=== PATIENT | female | born 1935 | race Caucasian/White ===

== ENCOUNTER 2017-09-18 23:39 | Inpatient (IN) | payer MEDICARE, MEDICAID ==
[~2017-09-18] VITALS: Ht 157.5 cm; Wt 74.0 kg
[~2017-09-18 23:39] MED LIST: ALBUTEROL2.5 MG/3 M IN; AMOXICILLIN500 MG PO; ASPIRIN LOW DOS81 MG PO; ATROVENT I0.5 MG/VIA IN; BENZONATATE200 MG OR; BONIVA150 MG OR; BP MED; CIPRO500 MG PO; CIPROFLOXACN500 MG OR; COMBIVENT IN; COMBIVENT RESPIMAT IN; CORTISPORIN OTI10 ML AD; DARVOCET N-100100 - OR; DITROPAN PO; DITROPAN XL10 MG PO; EC ASPIRIN325 M1 OR; EQ ASA CHLD81 MG PO; FISH OIL1000 M1 PO; FLEXERIL5 M1 PO; FUROSEMIDE20 MG PO; IPRATROPIUM/; IPRATROPIUM/ INH; LASIX 20 MG TAB20 MG PO; LISINOPRIL10 MG PO; MELOXICAM15 MG PO; METAXALONE800 M1 PO; METAXALONE800 MG OR; METOPROL TAR25 MG PO; MULTIVITAMIN OR; NEXIUM40 M1 OR; NEXIUM40 M1 PO; NEXIUM40 MG PO; NORVASC PO; NORVASC5 MG PO; NYSTATIN100000 M1 MT; OXYBUTYNIN5 M1 OR; OXYBUTYNIN5 M1 PO; PREDNISONE10 MG PO; PREVACID30 M2 OR; PROAIR HFA IN; PROVENTIL0.083 % IN; REGLAN10 MG OR; REQUIP5 MG OR; ROPINIROLE1 MG OR; ROPINIROLE1 MG PO; TIZANIDINE HCL2 M1 PO; TIZANIDINE HCL4 MG PO; TRAMADOL HCL50 MG OR; TRAMADOL HCL50 MG PO; TYLOPHEN500 M1 PO; VENTOLIN HFA IN; VITAMIN D2000 UNIT OR; ZITHROMAX500 MG PO; ZOSTAVAX IM; [UNRECOGNIZED DRUG - OTHER]
--- NOTE | 2017-09-18 23:50 | NUR ---
PT. TO ROOM 8 VIA W/C WITH C/O WEAKNESS AND SOB. PT. STATES SHE WAS WATCHING TV AND FELT WEAK.
--- NOTE | 2017-09-18 23:51 | NUR ---
PT. BILATERAL LUNG RIVAS ARE DEMINISHED. PT. O2 SAT ON RA 77%. PT. PLACED ON O2 NOW SATTING 95%. PT. STATES SHE WEARS O2 AT HOME.
[2017-09-19] VITALS (22 sets, daily range): BP systolic 91–151; BP diastolic 42–69
--- NOTE | 2017-09-19 00:01 | NUR ---
EKG COMPLETED.ST [address] Bella
--- NOTE | 2017-09-19 00:02 | NUR ---
PT. TO ROOM 8 WITH C/O FEVER 100.2 WEAKNESS AND SOB. BILATERAL LUNG RIVAS ARE DEMINISHED. O2 SAT ON RA 77 %. SKIN WARM AND PALE. RESP. 24 AND SHALLOW. BILATERAL LUNG RIVAS ARE DEMINISHED. PT. PLACED ON 2 LIT/O2 O2 SAT 98 % AT THIS TIME.
--- NOTE | 2017-09-19 00:08 | NUR ---
PT STRAIGHT BACK TO ROOM 8 AND TRIAGED
--- NOTE | 2017-09-19 00:35 | NUR ---
BP 77/59 MD AWARE.
--- NOTE | 2017-09-19 00:43 | NUR ---
PT. PLACED ON BIPAP PER MD ORDER.
--- NOTE | 2017-09-19 00:49 | NUR ---
ivf started as per md order.
[2017-09-19 01:12] LABS: HEMATOCRIT 34.6 % (37.0-47.0); HEMOGLOBIN 11.4 g/dl (12.0-16.0); IMMATURE GRANULOCYTES 1.1 % (0.0-1.0); MEAN CELL VOLUME 88.3 fL CALC (80.0-100.0); MEAN CORPUSCULAR HGB 29.1 pG CALC (26.0-32.0); MEAN CORPUSCULAR HGB CONC 32.9 g/L CALC (32.0-36.0); NEUT# 21.63 thou/uL (2.00-7.15); RED BLOOD COUNT 3.92 mill/uL (4.20-5.60); RED CELL DISTRI WIDTH 16.4 % (11.5-15.5)
[2017-09-19 01:24] LABS: BILIRUBIN, TOTAL 0.8 mg/dL (0.0-1.4); CREATININE 1.4 mg/dL (0.5-1.0); INTERNATIONAL NORMALIZED RATIO 0.9 RATIO (0.7-1.3); POTASSIUM 4.9 mmol/l (3.5-5.1); PROTHROMBIN TIME 10.5 SECONDS (9.0-12.5); TOTAL PROTEIN 6.7 g/dL (6.3-8.2)
[2017-09-19] MEDS ORDERED: BUMETANIDE1 MG PO (01:43)
[2017-09-19] MEDS ORDERED: LIPITOR10 M1 PO (01:43)
[2017-09-19] MEDS ORDERED: TEMAZEPAM15 MG PO (01:44)
[2017-09-19] MEDS ORDERED: SERTRALINE HCL25 MG PO (01:45)
[2017-09-19] MEDS ORDERED: POTASSIUM CHLO10 MEQ PO (01:45)
--- NOTE | 2017-09-19 01:45 | NUR ---
resting on stretcher, awake alert and oriented.
[2017-09-19 02:09] LABS: INFLUENZA A NONE DETECTED (NONE DETECT); INFLUENZA B NONE DETECTED (NONE DETECT)
--- NOTE | 2017-09-19 02:45 | NUR ---
koenig cath inserted, pt. tolerated well.
[2017-09-19 03:06] LABS: URINE BILIRUBIN - DIPSTICK NEGATIVE (NEGATIVE); URINE BLOOD DIPSTICK NEGATIVE (NEGATIVE); URINE COLOR YELLOW; URINE GLUCOSE - DIPSTICK NEGATIVE (NEGATIVE); URINE KETONE NEGATIVE (NEGATIVE); URINE LEUK ESTERASE NEGATIVE (NEGATIVE); URINE NITRITE - DIPSTICK NEGATIVE (Negative); URINE PROTEIN - DIPSTICK NEGATIVE (NEG-TRACE); URINE UROBILINOGEN - DIPSTICK 0.2 E.U./dL (0.2)
[2017-09-19 03:08] LABS: URINE CLARITY CLEAR
--- NOTE | 2017-09-19 03:15 | NUR ---
Admission Note Report Given to: MARCELA AKBAR Transported by: Wheelchair X Stretcher Transported with: X Nurse Transporter X Patent IV X O2 X Data Integrity Specialist
--- NOTE | 2017-09-19 03:36 | NUR ---
iv abt. started as per md order.
--- NOTE | 2017-09-19 03:45 | NUR ---
pt. taken to icu via stretcher bed 1. with resp. therapist. no c/o.
--- NOTE | 2017-09-19 03:50 | NUR ---
PT. ARRIVES FROM ER VIA STRETCHER WITH BIPAP IN PLACE. PT. MOVED FROM ER STRETCHER TO ICU BED BY 4 PERSON MAX ASSIST. UPON TRANSFER TO ICU BED, PT. PLACED ON 2L NC. SPO2 IS 90-93% ON 2L O2. PT. ORIENTED TO ROOM AND SITUATION. PT. IS AWAKE, ALERT, ORIENTED X 3. C/O 10/10 LOWER BACK PAIN, STATES IT IS HER POSITIONING LAYING FLAT. PT. DOES NOT APPEAR TO BE IN 10-10 PAIN. PT. STATES HER WORK OF BREATHING HAS IMPROVED. PROVIDED WITH WATER PER HER REQUEST. REPOSITIONED FOR COMFORT. CALL LIGHT PLACED WITHIN REACH. COARSE LUNG SOUNDS NOTED THROUGHOUT.
--- NOTE | 2017-09-19 04:20 | NUR ---
FAMILY AT BEDSIDE AT THIS TIME. IV FLUIDS CONTINUE TO INFUSE. NEW IV PLACED AT THIS TIME TO LT. F/A DUE TO POSITIONAL IV IN RT. AC. ABX INFUSING WITHOUT SX OF INFILTRATION OR EXTRAVASATION. PT. REMAINS STABLE ON 2L VIA NC. STATES MUCH IMPROVED WORK OF BREATHING. STATES TO FAMILY SHE IS READY TO GO HOME.
--- NOTE | 2017-09-19 05:30 | NUR ---
RT AT BEDSIDE AT THIS TIME. NEB TREATMENT IN PROGRESS. PT. CONTINUES TO REPORT IMPROVEMENT IN SX OF SOB.
--- NOTE | 2017-09-19 05:37 | NUR ---
IV VANCOMYCIN INFUSING AT THIS TIME WITHOUT REACTION NOTED.
[2017-09-19 05:49] LABS: HEMATOCRIT 29.7 % (37.0-47.0); MEAN CELL VOLUME 88.7 fL CALC (80.0-100.0); MEAN CORPUSCULAR HGB 29.9 pG CALC (26.0-32.0); MEAN CORPUSCULAR HGB CONC 33.7 g/L CALC (32.0-36.0); NEUT# 18.2 thou/uL (2.00-7.15); RED BLOOD COUNT 3.35 mill/uL (4.20-5.60); RED CELL DISTRI WIDTH 16.7 % (11.5-15.5)
[2017-09-19 06:08] LABS: CREATININE 1.4 mg/dL (0.5-1.0); MAGNESIUM 1.5 mg/dL (1.6-2.3); POTASSIUM 4.2 mmol/l (3.5-5.1)
--- NOTE | 2017-09-19 07:10 | NUR ---
pt awake in bed eating outside food provided by family member; no distress noted; assessment completed at this time; pt alert and oriented; denies pain at current; no n/v noted; grunting resp noted; pt denies sob/resp distress; resp unlabored; lungs coarse throughout; skin color wnl; o2 per nc; spo2 96%; prod cough of yellow/packer thick sputum; hr reg; strong pulses; edema noted to ble; bilat edgardo hose intact; sr on monitor; abd soft with bs present; no bm noted per real estate underwriter; koenig to gravity draining clear yellow urine; cath rose intact; #20 in rac saline locked; #22 in lw patent with ivf infusing as per orders; small scab noted to left great lat toe; plan of care/meds explained; call light within reach; will continue to monitor
--- NOTE | 2017-09-19 08:12 | NUR ---
awake in bed; family x1 remain at bedside; no distress noted; pt offers no complaints; o2 per nc; sr on monitor; call light within reach; will continue to monitor
--- NOTE | 2017-09-19 09:05 | NUR ---
Dr Suarez at bedside to discuss plan of care
--- NOTE | 2017-09-19 10:21 | NUR ---
Drug Selected: Vancomycin Age: 81 years Weight: 74 kg Height: 62 in Gender: Female SCR: 1.4 mg/dl Give Vancomycin 1000 mg q24 hrs NEXT TROUGH WILL BE 09/22/17 @ 3660
--- NOTE | 2017-09-19 10:21 | NUR ---
1021- pt transported to CT via stretcher with portable o2 in stable condition; this tech writer and student nurse remains with pt 1053- pt returned to unit via stretcher with portable o2 in stable condition; partial bath given; complete linen change; monitoring attahcment explained and reconnected; sr on monitor; o2 per nc; koenig to gravity; iv patent with fluids infusing without complication; call light within reach; will continue to monitor
[2017-09-19] MEDS ORDERED: BUDESONID2 (10:48)
[2017-09-19] MEDS ORDERED: ANORO ELLIPTA 61 AER PO (10:49)
[2017-09-19] MEDS ORDERED: COMBIVENT RESPIMAT PO (10:50)
[2017-09-19] MEDS ORDERED: DUONEB (10:51)
[2017-09-19] MEDS ORDERED: DOXEPIN HCL10 MG PO (10:51)
[2017-09-19] MEDS ORDERED: ROPINIROLE HCL0.5 MG PO (10:52)
--- NOTE | 2017-09-19 11:15 | NUR ---
family back at bedside; family did not bring in meds as requested per Dr Suarez for verification; will continue to monitor
--- NOTE | 2017-09-19 12:08 | NUR ---
awake in bed; no distress noted; pt offers no complaints; resp even and unlabored; iv patent; no redness or edema noted at site; sr on monitor; o2 per nc; visitors x2 at bedside; call light within reach; will continue to monitor
[2017-09-19] MEDS ORDERED: LASIX 20 MG TAB20 MG PO (13:13)
--- NOTE | 2017-09-19 14:20 | NUR ---
pt resting with eyes closed; no distress noted; resp even and unlabored; iv patent; no redness or edema noted at site; sr on monitor; koenig to gravity; call light within reach; will continue to monitor
--- NOTE | 2017-09-19 15:59 | NUR ---
resting with eyes closed; sr on monitor; no distress noted; easily aroused; o2 per nc; koenig to gravity; call light within reach; will continue to monitor
--- NOTE | 2017-09-19 16:30 | NUR ---
awake; assisted to recliner as per request; 2 person minimal assist required; sob on exertion noted; call light within reach; visitor at bedside; will continue to monitor
--- NOTE | 2017-09-19 18:00 | NUR ---
assist to bsc for bm; no bm noted; back to bed per pt request; sob on exertion; o2 per nc at 2L; st on moitor; koenig to gravity; sister at bedside; bed in lowest position; call light at bedside
--- NOTE | 2017-09-19 18:05 | NUR ---
Dr Ugalde at bedside
--- NOTE | 2017-09-19 19:00 | NUR ---
PT VISITING WITH FAMILY IN ROOM. PT IS ALERT AND ORIENTED X3. PERRLA. RESP ARE EVEN AND UNLABORED. WHEEZING NOTED IN BILATERAL LUNGS. PT REPORTS A PRODUCTIVE COUGH. HR REGULAR. PULSES PALPABLE THROUGHOUT. NO EDEMA NOTED. BS ACTIVE. ABEL DRAINING CLEAR YELLOW URINE. #22 LFA WITH NS @75CC/HR. NO REDNESS OR EDEMA NOTED. #20 RAC D/C. CATH TIP INTACT. PT TOLERATED WELL. WILL CONTINUE TO MONITOR
--- NOTE | 2017-09-19 21:15 | NUR ---
HS MEDICATIONS GIVEN. PT STATES THAT SHE IS HAVING SOME BACK PAIN. MEDICATED FOR PAIN WITH TRAMADOL. WILL CONTINUE TO MONITOR
--- NOTE | 2017-09-19 22:08 | NUR ---
PT RESTING IN BED WITH EYES CLOSED. RESP ARE EVEN AND UNLABORED. WILL CONTINUE TO [place]
--- NOTE | 2017-09-19 23:55 | NUR ---
PT RESTING IN BED WITH EYES CLOSED. PT AROUSES EASILY TO VERBAL STIMULI. RESP ARE EVEN AND UNLABORED. NO DISTRESS NOTED. WILL CONTINUE TO MONITOR
[2017-09-20] VITALS (18 sets, daily range): BP systolic 94–147; BP diastolic 56–93
--- NOTE | 2017-09-20 01:40 | NUR ---
PT NOW AFIB ON MONITOR. NOTED PT MOVING AROUND IN BED. WILL CONTINUE TO MONITOR
--- NOTE | 2017-09-20 02:15 | NUR ---
PT REMAINS IN AFIB ON MONITOR 90-140S. BP 90/60 MANUAL. AUTOMATIC 87/56. DR PACHECO NOTIFIED. PT DENIES BEING ON BLOOD THINNERS AND MEDICAL HISTORY OF AFIB. WILL CONTINUE TO MONITOR
--- NOTE | 2017-09-20 04:00 | NUR ---
PT RESTING IN BED AWAKE. RESP ARE EVEN AND UNLABORED. NO DISTRESS NOTED. PT VOICES NO COMPLAINTS AT THIS TIME. WILL CONTINUE TO MONITOR
[2017-09-20 05:26] LABS: HEMOGLOBIN 9.3 g/dl (12.0-16.0); MEAN CELL VOLUME 88.3 fL CALC (80.0-100.0); MEAN CORPUSCULAR HGB 29.3 pG CALC (26.0-32.0); MEAN CORPUSCULAR HGB CONC 33.2 g/L CALC (32.0-36.0); RED BLOOD COUNT 3.17 mill/uL (4.20-5.60); RED CELL DISTRI WIDTH 15.9 % (11.5-15.5)
[2017-09-20 06:00] LABS: CREATININE 1.1 mg/dL (0.5-1.0); POTASSIUM 3.8 mmol/l (3.5-5.1)
--- NOTE | 2017-09-20 06:04 | NUR ---
PT RESTING IN BED AWAKE. RESP ARE EVEN AND UNLABORED. NO DISTRESS NOTED. WILL CONTINUE TO MONITOR
--- NOTE | 2017-09-20 07:19 | NUR ---
INTRODUCED SELF TO PT. PT REQUEST TO BE UP IN CHAIR AT BEDSIDE. CRACKLES THROUGH LUNG BASE, EVEN BUT LABORED BREATHING. PT TALKATIVE WITH STAFF. BED LINENS CHANGED. NO VISITORS AT BEDSIDE.
--- NOTE | 2017-09-20 07:50 | NUR ---
PT UP IN CHAIR EATING BREAKFAST. NO VISITORS AT THIS TIME. PT FREQUENTLY ON CALLBELL.
--- NOTE | 2017-09-20 08:19 | NUR ---
DR SHELDON @ BEDSIDE ASSESSING PT, REVIEWING POC WITH PT.
--- NOTE | 2017-09-20 09:00 | NUR ---
PT RETURNED TO BED. SON-IN-LAW @ BEDSIDE. PT INITIALLY BREATHING EVEN & UNLABORED BUT GETS LABORED THE LONGER STAFF IS IN ROOM. 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
--- NOTE | 2017-09-20 10:05 | NUR ---
PT OVERHEARD ON CELLPHONE SPEAKING EVEN & UNLABORED. PT FREQUENTLY QUALITY LIAISON MATTHEW.
--- NOTE | 2017-09-20 11:54 | NUR ---
PT SITTING UP IN BED EATING LUNCH. NO S/S OF DISTRESS. WILL CONTINUE TO MONITOR.
--- NOTE | 2017-09-20 13:00 | NUR ---
PT SLEEPING IN BED. NO S/S OF DISTRESS. WILL CONTINUE TO MONITOR.
--- NOTE | 2017-09-20 13:58 | NUR ---
PT UP TO CHAIR, PER PTS REQUEST.
--- NOTE | 2017-09-20 14:49 | NUR ---
GUEST @ BEDSIDE. PT TALKING, LAUGHING, JOKING. NO S/S OF DISTRESS. PT STILL UP IN CHAIR.
--- NOTE | 2017-09-20 15:04 | NUR ---
PT GIVEN A BATH AND CHANGED TO NEW GOWN.
--- NOTE | 2017-09-20 16:07 | NUR ---
ASSIST PT BACK INTO BED. RT @ BEDSIDE FOR NEB TREATMENT. SON @ BEDSIDE.
--- NOTE | 2017-09-20 17:05 | NUR ---
PT SITTING UP IN BED, EATING DINNER. NO S/S OF DISTRESS AT THIS TIME. SON-IN-LAW BROUGHT SALAD DRESSING AND A DRINK IN A JAR- LABELED & PLACED IN FRIDGE.
--- NOTE | 2017-09-20 17:57 | NUR ---
DIETARY @ BEDSIDE TO ASSESS DIET FOR TOMORROW.
--- NOTE | 2017-09-20 18:03 | NUR ---
REQUESTED MEDS FROM [facility] SINCE PHARM IS CLOSED.
--- NOTE | 2017-09-20 19:00 | NUR ---
PT RESTING IN BED AWAKE. PT IS ALERT AND ORIENTED X3. PERRLA. RESP ARE LABORED. LUNGS HAVE CRACKLES BILATERALLY. PT ON O2 2L NC. HR IRREGULAR. AFIB ON MONITOR. PULSES PALPABLE THROUGHOUT. 1+ EDEMA TO BILATERAL EXTREMITIES. BS ACTIVE. ABEL DRAINING CLEAR YELLOW URINE. NOTIFIED DR PACHECO THAT PT IS UP ON FLUIDS. #22 LFA WITH NS @75CC/HR. NO REDNESS OR EDEMA NOTED. WILL CONTINUE TO MONITOR
--- NOTE | 2017-09-20 19:20 | NUR ---
#22 STARTED IN RFA X1 ATTEMPT. PT TOLERATED WELL.
--- NOTE | 2017-09-20 19:30 | NUR ---
AMIODARONE BOLUS STARTED BP 106/80 HR 112
--- NOTE | 2017-09-20 19:35 | NUR ---
BP 147/90 HR 132
--- NOTE | 2017-09-20 19:40 | NUR ---
BP 130/72 HR 105
--- NOTE | 2017-09-20 19:42 | NUR ---
AMIODARONE 450MG/250ML STARTED AT 1MG PER MINUTE WILL DECREASE TO 0.5MG/MIN AT 0140
--- NOTE | 2017-09-20 19:45 | NUR ---
AMIODARONE DRIP INFUSING. BP-112/69 HR 111. WILL CONTINUE TO MONITOR
--- NOTE | 2017-09-20 20:39 | NUR ---
PT REMAINS AFIB ON MONITOR AT A RATE OF 109. AMIODARONE DRIP INFUSING AT 1MG/MIN.
--- NOTE | 2017-09-20 21:28 | NUR ---
PT REMAINS AFIB ON MONITOR AT A RATE OF 122
--- NOTE | 2017-09-20 22:14 | NUR ---
PT RESTING IN BED WITH EYES CLOSED. RESP ARE EVEN AND UNLABORED. NO DISTRESS NOTED. PT CONTINUES TO BE IN AFIB ON MONITOR
[2017-09-21] VITALS (28 sets, daily range): BP systolic 108–202; BP diastolic 61–99
--- NOTE | 2017-09-21 | NUR ---
PT REQUESTED A NEB TREATMENT STATING THAT SHE FEELS SHORT OF BREATH. RT NOTIFIED. NEB TREATMENT PROVIDED.
--- NOTE | 2017-09-21 00:25 | NUR ---
PT O2 SAT 79%. PT WITH LABORED BREATHING. PT PLACED ON BIPAP FIO2 28% 06/04.
--- NOTE | 2017-09-21 00:35 | NUR ---
NOTIFIED DR PACHECO OF PT BEING PLACED BACK ON BIPAP. PT CONTINUES TO BE AFIB ON MONITOR AT A RATE OF 111. CRACKLES BILATERALLY IN LUNGS. NOTIFIED DR PACHECO.
--- NOTE | 2017-09-21 00:50 | NUR ---
RECEIVED ORDERS FROM DR PACHECO TO GIVE LASIX 40MG IV. ORDERS [facility]XED TO [facility]
--- NOTE | 2017-09-21 01:37 | NUR ---
TITRATED DOWN AMIODARONE TO 0.5MG/MIN. BPS Q5MIN X4. THEN EVERY HOURS
--- NOTE | 2017-09-21 02:00 | NUR ---
PT RESTING IN BED WITH EYES CLOSED. RESP ARE EVEN AND UNLABORED ON BIPAP. NO DISTRESS NOTED. PT REMAINS AFIB ON MONITOR. WILL CONTINUE TO MONITOR
--- NOTE | 2017-09-21 04:00 | NUR ---
PT RESTING IN BED WITH EYES CLOSED. RESP ARE EVEN AND UNLABORED. NO DISTRESS NOTED. BIPAP IN PLACE. WILL CONTINUE TO MONITOR.
--- NOTE | 2017-09-21 05:03 | NUR ---
SECOND BAG OF AMIODARONE DRIP STARTED. PT REMAINS IN AFIB ON MONITOR AT A RATE OF 100. BIPAP CONTINUES TO BE IN PLACE. PO FLUIDS PROVIDED FOR PT. WILL CONTINUE TO MONITOR
[2017-09-21 05:13] LABS: HEMATOCRIT 28.3 % (37.0-47.0); HEMOGLOBIN 9.3 g/dl (12.0-16.0); IMMATURE GRANULOCYTES 0.7 % (0.0-1.0); MEAN CELL VOLUME 90.1 fL CALC (80.0-100.0); MEAN CORPUSCULAR HGB 29.6 pG CALC (26.0-32.0); MEAN CORPUSCULAR HGB CONC 32.9 g/L CALC (32.0-36.0); NEUT# 14.63 thou/uL (2.00-7.15); RED BLOOD COUNT 3.14 mill/uL (4.20-5.60); RED CELL DISTRI WIDTH 16.3 % (11.5-15.5)
[2017-09-21 05:36] LABS: CREATININE 1.2 mg/dL (0.5-1.0); POTASSIUM 4.4 mmol/l (3.5-5.1)
--- NOTE | 2017-09-21 06:11 | NUR ---
PT RESTING INBED WITH EYES CLOSED. BIPAP IN PLACE. PT AROUSES EASILY TO VERBAL STIMULI. RESP ARE EVEN AND UNLABORED. NO DISTRRESS NOTED. WILL CONTINUE TO MONTIOR
--- NOTE | 2017-09-21 06:25 | NUR ---
POST IV LASIX PT HAD 1400CC OF CLEAR YELLOW URINE IN ABEL.
--- NOTE | 2017-09-21 06:30 | NUR ---
PT REQUESTED THAT BIPAP BE REMOVED. INSTRUCTED PT THAT WE COULD DO A TRIAL AND REMOVE BIPAP. [id number] PT ON TAKING NICE SLOW DEEP BREATHS IN THROUGH THE NOSE AND OUT THROUGHT THE MOUTH. INFORMED PT THAT IF SHE BECOMES TACHYPNEIC OR IF O2 SATURATION DROPS SHE WILL HAVE TO BE PLACED BACK ON BIPAP. ENCOURAGED PT TO MONITOR AND DECREASE PO FLUID INTAKE TO AVOID FLUID OVERLOAD. PT VERBALIZED UNDERSTANDING.
--- NOTE | 2017-09-21 07:25 | NUR ---
PT ALERT AND ORIENTED, ASSISTED TO SITTING UP ON EDGE OF BED FOR AM MEAL, AND FOR COMFORT PER PT REQUEST, COMPLAINS OF GENERAL BACK ACHE RELATED TO LAYING IN BED, AM ASSESSMENT COMPLETED PT HAS CRACKLES THRU OUT WITH LABORED RESPS NOTED, PT CURRENTLY HAS O2 AT 2L VIA NC WITH SATS 84-87%, ENCOURAGED TO TAKE SLOW DEEP BREATHS AND REST PRN, VS STABLE OTHERWISE, ABEL INTACT DRAINING CLEAR YELLOW URINE, WITH CATH CESURITY DEVICE INTACT ON UPPER THIGH, IV ACCESS X [address] IN BILATERAL FA WITH AMIODARONE GTT CONTINUING PER PROTOCOL AND IVF WITH ABT, TELE READING A FIB RATE IN THE 90-110 RANGE, HR FLUCUATES FREQUENTLY, CALL MATTHEW WITHIN REACH, SAFETY MEASURES REINFORCED, AND ENCOURAGED TO CALL FOR ANY NEEDED ASSISTANCE
--- NOTE | 2017-09-21 08:10 | NUR ---
PT LABORED RESPS WITH SAT IN THE 70'S, ASSISTED BACK TO LYING DOWN, REPOSITIONED FRO COMFORT, AND BI PAP PLACED BACK ON PT, SEE FLOWSHEET FOR SETTINGS, R.T. NOTIFIED.
--- NOTE | 2017-09-21 09:15 | NUR ---
PT TOLERATING BI PAP W/O INCIDENT, SAT SLOWLY IMPROVING CURRENTLY AT 90%, COMFORT MEASURES PROVIDED, CALL MATTHEW WITHIN REACH, WILL CONTINUE TO MONITOR
--- NOTE | 2017-09-21 10:00 | NUR ---
MULTIPLE VISITORS PT ENCOURAGED TO REST AND NOT TALK OVER BIPAP, COOPERATIVE AT TIMES BUT REQUIRES FREQUENT REMINDERS, IVF CONTINUE ORDERED, CALL MATTHEW WITHIN REACH.
--- NOTE | 2017-09-21 10:31 | NUR ---
PT RESTING, CONTINUES TOLERATE BI PAP, OFFERS NO NEW COMPLAINTS, STATES PAIN IMPROVED SINCE MEDICATED EARLIER, CALL MATTHEW WITHIN REACH, VISITOR AT BEDSIDE
--- NOTE | 2017-09-21 11:30 | NUR ---
PT ENCOURAGED TO KEEP BI PAP ON UNTIL LUNCH TRAYS ARE DELIVERED, WILL TRIAL REMOVE BIPAP AT THAT TIME AND MONITOR TOLERANCE.
--- NOTE | 2017-09-21 12:05 | NUR ---
BI PAP OFF, PLACED ON NC WILL MONITOR TOLERANCE, VISITORS AT BEDSIDE
--- NOTE | 2017-09-21 12:20 | NUR ---
BI PAP PLACED BACK ON PT AT HER REQUEST, FAMILY MEMBERS AT BEDSIDE, CALL MATTHEW WITHIN REACH.
--- NOTE | 2017-09-21 13:36 | NUR ---
PT RESTING IN BED, OFFERS NO NEW COMPLAINTS, VISITORS AT BEDSIDE, CONTINUES TO TOLERATE BIPAP, VS STABLE AMIODARONE GTT CONTINUES PER PROTOCOL, CALL MATTHEW WITHIN REACH.
--- NOTE | 2017-09-21 14:34 | NUR ---
BI PAP OFF FOR REST PER PT REQUEST, O2 PLACED AT 3L VIA NC, WILL MONITOR TOLERANCE, VISITORS REMAIN AT BEDSIDE.
--- NOTE | 2017-09-21 15:52 | NUR ---
pt continues to tolerate NC, talking on phone with family member, encouraged to rest as needed for dyspnea
--- NOTE | 2017-09-21 16:40 | NUR ---
pt resps slightly labored, sats maintained in the 81-84% range, BI PAP placed back on pt, will monitor tolerance.
--- NOTE | 2017-09-21 18:00 | NUR ---
SET UP ASSIST PROVIDED FOR PMA, MEAL BI PAP OFF BU1989 AND PT SPOKE WITH HER DAUGHTER VIA TELEPHONE, RESPS REMAINS LABORE DANAmerico PT ENCOURAGED TO EAT SLOWLY AND REST PRN, WILL CONTINUE TO MONITOR.
--- NOTE | 2017-09-21 18:03 | NUR ---
PT BACK ON BI PAP, VISITORS GONE AT THIS TIME, PT ENCOURAGED TO KEEP BI PAP ON THRU OUT HTE NIGHT IN ORDER TO REST, PT VERBALIZES AGREEANCE, WILL CONTINUE TO MONITOR
--- NOTE | 2017-09-21 18:09 | NUR ---
HYDRALAZINE IV GIVEN ORDERED FOR BP 190/98
--- NOTE | 2017-09-21 18:48 | NUR ---
MANUAL BP 180/80
--- NOTE | 2017-09-21 18:50 | NUR ---
REPORT FROM RAFFY CASTILLO. ASSUMED PT. CARE.
--- NOTE | 2017-09-21 19:30 | NUR ---
PATIENT RECEIVED ON BIPAP WITH 16/8, RATE 16 AND 28%. SPO2 ON THAT SETTING WAS 86% AND SHE WAS BREATHING VERY FAST ABOUT 40 BREATH A MINUTE. FIO2 INCREASED FROM 28% TO 35%. ABG DRAWN AFTER ABOUT 10 MINUTES. RESULT ON MEDITECK. PRESSURE WAS INCREASED TO 20/10, RATE OF 20 AND STILL 35%. DR PACHECO WAS CALLED TO REPORT THE RESULT. REPEAT ABG IN 4 HOURS. PATIENT LOOKS COMFORTABLE WITH NEW SETTING. WILL CONTINUE TO MONITOR THE PATIENT THROUGHTOUT THE SHIFT.
--- NOTE | 2017-09-21 20:05 | NUR ---
PT. PROVIDED WITH SIP OF TEA PER HER REQUEST. PT. HAS REQUESTED SIPS OF WTER FREQUENTLY SINCE THIS RN ARRIVAL. RT AT BEDSIDE AND NEW ABG PERFORMED AND EKG. PT. IS NOW SINUS RHYTHM. INFORMED. NEW ORDERS RECEIVED.
--- NOTE | 2017-09-21 21:30 | NUR ---
PT. MEDICATED PER PHYSICIAN ORDERS. PT. DENIES COMPLAINTS AT THIS TIME. WILL REASSESS PAIN LEVEL. LIGHTS DIMMED FOR COMFORT. REMAINS ON BIPAP AT THIS TIME. WILL CONTINUE TO CLOSELY MONITOR. CALL LIGHT REMAINS WITHIN REACH AND PT. CONTINUES TO USE IT FREQUENTLY.
--- NOTE | 2017-09-21 22:44 | NUR ---
RT. AT BEDSIDE AT THIS TIME TO ADMINISTER NEB TREATMENT. PT. REMAINS ON BIPAP AT THIS TIME. SPO2 IS STABLE AT 96%. MD MADE AWARE OF CURRENT BP. NO NEW ORDERS AT THIS TIME.
--- NOTE | 2017-09-21 23:45 | NUR ---
RT. BACK AT BEDSIDE TO PERFORM ABG. ABX INITIATED AT THIS TIME. BIPAP MASK REPOSITIONED FOR PATIENT COMFORT. PROVIDED WITH SIP OF WATER AT THIS TIME. CALL LIGHT REMAINS WITHIN REACH. WILL CONTINUE TO MONITOR.
[2017-09-22] VITALS (23 sets, daily range): BP systolic 140–186; BP diastolic 66–92
--- NOTE | 2017-09-22 01:30 | NUR ---
PT. PLACED ON BEDPAN AT THIS TIME. UNABLE TO PROVIDE STOOL. REPOSITIONED FOR COMFORT. CONTINUES TO VOICE HER DISPLEASURE FOR BIPAP. PT. ENCOURAGE TO KEEP IT IN PLACE HER ABG WAS NOT IMPROVED. CALL LIGHT PLACED BACK WITHIN REACH. PROVIDED WITH SIP OF TEA PER HER REQUEST. WILL CONTINUE TO MONITOR.
--- NOTE | 2017-09-22 02:16 | NUR ---
RT. CALLED AT THIS TIME PT. STATES SHE NEEDS THE BIPAP OFF. STATES IT IS HURTING HER NOSE. WILL ADJUST PER RT.
--- NOTE | 2017-09-22 03:36 | NUR ---
PT. C/O HEADACHE AT THIS TIME. NEW ORDERS RECEIVED, WILL MEDICATE WHEN PHARMACY PLACES ORDER THROUGH. DENIES OTHER COMPLAINTS. PT. BACK ON BIPAP AT THIS TIME. BIPAP CONTINUES WITH MILD LEAK DUE TO PT. C/O MASK BEING TOO TIGHT.
--- NOTE | 2017-09-22 04:02 | NUR ---
ATTEMPT TO MEDICATE PATIENT AT THIS TIME. PT. FOUND SLEEPING AT THIS TIME. WILL MEDICATE WHEN PATIENT AWAKE IF NEEDED FOR HEADACHE. DOOR CLOSED FOR QUIET AT THIS TIME. REMAINS STABLE ON THE BIPAP AT THIS TIME.
--- NOTE | 2017-09-22 05:50 | NUR ---
RESP THERAPY AT BEDSIDE TO REPEAT ABG. NEB TREATMENT IN PROGRESS AT THIS TIME. PT. REQUESTING CHANGE TO MASK. ENCOURAGED TO KEEP IN PLACE UNTIL NEB TREATMENT COMPLETE. MEDICATED WITH TYLENOL FOR COMPLAINT OF HEADACHE. MEDICATED NOW THAT PATIENT IS AWAKE.
--- NOTE | 2017-09-22 06:11 | NUR ---
MASK REPOSITIONED AT THIS TIME. IV ANTIBIOTICS INFUSING WITHOUT PROBLEMS AT THIS TIME. WILL CONTINUE TO MONITOR.
[2017-09-22 06:43] LABS: HEMATOCRIT 30.7 % (37.0-47.0); MEAN CORPUSCULAR HGB CONC 32.6 g/L CALC (32.0-36.0); RED BLOOD COUNT 3.45 mill/uL (4.20-5.60); RED CELL DISTRI WIDTH 16.3 % (11.5-15.5)
[2017-09-22 06:57] LABS: ALBUMIN 2.8 g/dL (3.2-5.0); ALKALINE PHOSPHATASE 81 u/l (38-126); ANION GAP 13 (6-22 (CALC)); BILIRUBIN, TOTAL 0.3 mg/dL (0.0-1.4); BUN 20 mg/dL (8-23); BUN/CREATININE RATIO 19 (12-20 (CALC)); CARBON DIOXIDE 34 mmol/l (22-30); CHLORIDE 93 mmol/l (95-108); GFR 53 ML/MIN (>=60 (CALC)); GFR FOR AFR.AMER. > 60 ML/MIN (>=60 (CALC)); POTASSIUM 3.8 mmol/l (3.5-5.1); SGOT/AST 36 u/l (9-36); SGPT/ALT 53 u/l (11-66); SODIUM 137 mmol/l (137-146); TOTAL PROTEIN 5.4 g/dL (6.3-8.2)
--- NOTE | 2017-09-22 07:25 | NUR ---
PT ALERT AND ORIENTED, RESTING IN BED WITH BI PAP IN PLACE SEE FLOW SHEET FOR SETTINGS, REQUESTING IT TO BE OFF, EDUCATED PT REGARDING IMPORTANCE OF REMAINING ON BI PAP AT THIS TIME R/T RESP STATUS, PT VERBALIZES UNDERSTANDING, COMPLIANT TO REMAIN ON BI PAP, PT COMPLAINS OF GENERAL BACK ACHE RELATED TO LAYING IN BED, BUT DENIES NEED FOR PAIN MEDICATION AT THIS TIME AM ASSESSMENT COMPLETED, SEE INTERVENTIONS, PT HAS DIMINSHED COARSE BREATH SOUNDS THRU OUT WITH LABORED RESPS NOTED, ENCOURAGED TO TAKE SLOW DEEP BREATHS AND REST PRN, ABEL INTACT DRAINING CLEAR YELLOW URINE, WITH CATH SECURITY DEVICE INTACT ON R UPPER THIGH, IV ACCESS X [address] IN BILATERAL FA WITH IVF/ABT IN LEFT FA SITE, RFA SITE SALINE LOCKED, , TELE READING SR RATE IN THE 90-110 RANGE WITH PAC'S NOTED, CALL MATTHEW WITHIN REACH, SAFETY MEASURES REINFORCED, AND ENCOURAGED TO CALL FOR ANY NEEDED ASSISTANCE.
--- NOTE | 2017-09-22 08:00 | NUR ---
AM MEAL HELD RELATED TO PT NEED TO REMAIN ON BI PAP, REPOSITIONED FOR COMFORT, CALL MATTHEW WITHIN REACH
--- NOTE | 2017-09-22 08:37 | NUR ---
IN TO SEE PATIENT PLAN OF CARE DISCUSSED INCLUDING LASIX ADMINISTRATION, REMAINING ON BIPAP AND DIAGNOISIS, ALL QUESTIONS ANSWERED.
--- NOTE | 2017-09-22 09:10 | NUR ---
PT OFF BIPAP FOR APPROX 2-3 MINUTES FOR MEDICATION ADMINISTRATION AND NASAL SPRAY, SATS DECREASED TO 87% FORM 96% IN THAT TIME, DISCUSSED STAYING ON BIPAP TIL LUNCH AND WILL RE-EVALUATE, FOAM APPLIED TO NOSE FOR PT COMFORT WITHOUT COMPROMISING MASK FIT FOR BI PAP,PT IN AGREEANCE WITH PLAN AND VERBALIZES UNDERSTANDING, WILL CONTINUE TO MONITOR.
--- NOTE | 2017-09-22 10:10 | NUR ---
PT RESTING OFFERS NO COMPLAINTS, CALL MATTHEW WITHIN REACH, CONTINEUS TO TOLERATE BI PAP
--- NOTE | 2017-09-22 11:19 | NUR ---
COMPLETE BED BATH COMPLETED. LOTION APPLIED, AND GOOD FOOT CARE PROVIDED,PT HAS MULTIPLE CALLUSES ON BILATERAL FEET, PT STATES SHE GOES BAREFOOT A LOT AT HOME, COMPLETE LINEN CHANGE DONE WELL, PT REPOSITIONED FOR COMFORT REMAINS ON BI PAP, TOLERATED ACTIVITY WELL, WILL CONTINUE TO MONTIOR.
--- NOTE | 2017-09-22 12:47 | NUR ---
PT OFF BIPAP FOR MEAL, SET UP ASSIST COMPLETED, PT SAT DROPS AND MAINTAINEDS AT 85-87% ON NC, WILL MONITOR CLOSELY, PT ENCOURAGED TO REST AND TAKE HER TIME EATING MEAL,
--- NOTE | 2017-09-22 12:54 | NUR ---
SATS DROPPED TO 79 WITH SHORT CONVO ON FPHONE WITH FAMILY MEMBER, BI PAP BACK ON PER PT REQUEST, WILL MONITOR TOLERANCE.
--- NOTE | 2017-09-22 13:23 | NUR ---
PT RESTING CALL MATTHEW WITHINR EACH, NO S/S OF DISTRESS, CALL MATTHEW WITHIN REACH, WILL CONTINUE TO MONITOR.
--- NOTE | 2017-09-22 14:27 | NUR ---
FAMILY MEMBERS AT BEDSIDE, CALL MATTHEW WITHIN REACH, WILL CONTINUE TO MONITOR, CALL MATTHEW WITHIN REACH,
--- NOTE | 2017-09-22 14:55 | NUR ---
PT OFF BIPAP FOR DRINK OF WATER, TOLERATED DRINK OF WATER WELL, BIPAP PLACED BACK ON PATIENT.
--- NOTE | 2017-09-22 15:11 | NUR ---
S: MAJOR ISLAS is a 81 F who presents with pneumonia. O: VS: BP 144/68, P 96, RR 20,T 96.9 deg Fahrenheit W <74kg>, HT<62inch>, Scr=<1.0>,CrCl= <43 ml/min> Vancomycin trough 09/22 = 12 A: Sputum culture shows proteus mirabilis which is sensitive to zosyn and other tested antibiotics Vancomycin trough is subtherapeutic. P: Patient is on vancomcyin 1 gram IV Q24H. Vancomycin ordered for pharmacy to dose. Increasing Vancomycin to 1250 milligram IV Q24H. Vancomycin trough is drawn before the 4th dose on 09/26/2017 at 6:30am. Vancomycin goal trough is between <15-20 mcg/ml>. Pharmacy will follow and or advise on antibiotics use as needed.
--- NOTE | 2017-09-22 15:48 | NUR ---
GRANDDAUGHTER AT BEDSIDE, PT ENCOURAGED TO REST AND NOT TALK TO MUCH, VISITOR COOPERATIVE, CALL MATTHEW WITHIN REACH, WILL CONTINUE TO MONITOR.
--- NOTE | 2017-09-22 16:25 | NUR ---
PT RESTING REMAINS ON BIPAP GRANDDAUGHTER AT SIDE, NO COMPLAINTS OFFERED, NO S/S OF DISTRESS, REPOSITIONED FRO COMFORT, CALL MATTHEW WITHIN REACH
--- NOTE | 2017-09-22 17:25 | NUR ---
IN TO SEE FAMILY AND PT SPOKE WITH THEM REGARDING PLAN OF CARE FAILURE TO IMPROVE AND NEED FOR HIGHER LEVEL OF CARE. PLANNED TRASNFER TO [facility] IF/WHEN BED AVAIALBLE AND ACCEPTING PHYSICIAN DETERMINED
--- NOTE | 2017-09-22 17:40 | NUR ---
CALL INTO ALEKS[facility] AT [facility], INFORMATION PROVIDED, ALL REQUESTED DOCUMENTATION FAXED TO [phone], ASSIGNED REF# [id number] AWAITING CALL BACK
--- NOTE | 2017-09-22 18:32 | NUR ---
PT OFF BIPAP FOR BRIEF REST, O2 APPLIED VIA NC, CALL MATTHEW WITHIN REACH, [place] AT BEDSIDE
--- NOTE | 2017-09-22 18:39 | NUR ---
PT BACK ON BIPAP, GRANDSON REMAINS AT BEDSIDE, WILL CONTINUE TO MONITOR.
--- NOTE | 2017-09-22 18:50 | NUR ---
REPORT FROM RAFFY CASTILLO. ASSUMED PT. CARE
--- NOTE | 2017-09-22 19:13 | NUR ---
LINDA HUERTAS AT [facility] DR. JACKIE NIETO HAS ACCEPTED PT. FOR TRANSFER. WILL BE AWAITING BED PLACEMENT AT [facility].
--- NOTE | 2017-09-22 20:07 | NUR ---
PT. FOUND AWAKE, ALERT, ORIENTED X 3. ON THE BIPAP 20/10 FIO2 OF 35% RATE OF 20. PT. TOLERATING WELL. PROVIDED WITH SIP OF TEA AT THIS TIME AND SHORT RESPITE FROM BIPAP. RESPS REMAIN EVEN AND LABORED. LUNG SOUNDS LESS DIMINISHED THAN LAST EVENING. INSP/EXP WHEEZES CONTINUE. BP STABLE AT 130/70 AT THIS TIME. DENIES COMPLAINTS OF PAIN AT THIS TIME. NO EDEMA NOTED. GOOD PULSES THROUGHOUT. CALL LIGHT WITHIN REACH. WILL CONTINUE TO MONITOR.
--- NOTE | 2017-09-22 21:50 | NUR ---
PT. RESTING IN BED ON THE BIPAP. REMAINS AT 20/10 WITH RATE OF 20. FIO2 OF 35%. NO DISTRESS. COMFORTABLE ON THE BIPAP.
--- NOTE | 2017-09-22 23:00 | NUR ---
PT. RESTING WITH EYES CLOSED. RESPS REMAINS EVEN AND SHALLOW. REMAINS SINUS ON THE MONITOR. SPO2 IS 88% ON 4L NC. REMAINS OFF BIPAP. WILL CONTINUE TO ASSESS. CALL LIGHT REMAINS WITH REACH.
--- NOTE | 2017-09-22 23:50 | NUR ---
PT. RESPOSITIONED FOR COMFORT. PROVIDED RESPITE FROM BIPAP MASK AT THIS TIME PROVIDED PO FLUIDS PER HER REQUEST. RESPS REMAIN EVEN, SHALLOW, UNLABORED. CALL LIGHT REMAINS WITHIN REACH. IV ABX INFUSING AT THIS TIME WITHOUT REACTION. MEDICATED PER PHYSICIAN ORDERS. WARM BLANKET PROVIDED.
[2017-09-23] VITALS (20 sets, daily range): BP systolic 133–172; BP diastolic 67–84
--- NOTE | 2017-09-23 01:30 | NUR ---
PT. C/O INDIGESTION AT THIS TIME. NEW ORDERS RECEIVED. WILL MEDICATE WHEN PHARMACY ENTERS MEDICATION TO EMAR. PT. CONTINUES TO REST COMFORTABLY ON THE BIPAP. SETTINGS REMAIN AT 20/10, RATE OF 20 AND FIO2 OF 35%.
--- NOTE | 2017-09-23 02:14 | NUR ---
PT. RESTING WITH EYES CLOSED, COMFORTABLE ON THE BIPAP. CALL LIGHT REMAINS WITHIN REACH. VSS. WILL CONTINUE TO MONITOR.
--- NOTE | 2017-09-23 04:34 | NUR ---
PT. REMAINS AROUSABLE TO LIGHT VERBAL STIMULI. ORIENTED X 3. RESPS REMAIN EVEN AND SHALLOW ON THE BIPAP. SPO2 IS 97% 20/10, FIO2 OF 35%. HR REMAINS SINUS RHYTHM. CALL LIGHT REMAINS WITHIN REACH. DENIES COMPLAINTS.
[2017-09-23 05:01] LABS: HEMATOCRIT 30.2 % (37.0-47.0); HEMOGLOBIN 9.8 g/dl (12.0-16.0); IMMATURE GRANULOCYTES 1.5 % (0.0-1.0); MEAN CELL VOLUME 88.3 fL CALC (80.0-100.0); MEAN CORPUSCULAR HGB 28.7 pG CALC (26.0-32.0); MEAN CORPUSCULAR HGB CONC 32.5 g/L CALC (32.0-36.0); NEUT# 5.51 thou/uL (2.00-7.15); RED BLOOD COUNT 3.42 mill/uL (4.20-5.60)
[2017-09-23 05:12] LABS: ANION GAP 11 (6-22 (CALC)); BUN 19 mg/dL (8-23); BUN/CREATININE RATIO 20 (12-20 (CALC)); CARBON DIOXIDE 38 mmol/l (22-30); CHLORIDE 89 mmol/l (95-108); GFR 53 ML/MIN (>=60 (CALC)); GFR FOR AFR.AMER. > 60 ML/MIN (>=60 (CALC)); POTASSIUM 3.4 mmol/l (3.5-5.1); SODIUM 135 mmol/l (137-146)
--- NOTE | 2017-09-23 06:02 | NUR ---
RT AT BEDSIDE AT THIS TIME. NEB TREATMENT ADMINISTERED. IV ZOSYN INFUSING AT THIS TIME. NO REACTIONS NOTED. CALL LIGHT REMAINS WITHIN REACH. PT. DENIES COMPLAINTS. CONTINUES TO TOLERATE BIPAP WELL. REMAINS 20/10 FIO2 OF 35% AND RATE OF 20.
--- NOTE | 2017-09-23 07:15 | NUR ---
ASSESSMENT IS COMPLETED: IV SITE IS FREE FROM REDNESS OR EDEMA. BREATH SOUNDS ARE COARSE AMD DIMINSHED. HR IS REG, PULSES ARE STRONG X4. CONITNUE TO OBSERVE AND MONITOR.
--- NOTE | 2017-09-23 07:27 | NUR ---
RECEIVED A CALL FROM MADDISON AT [facility]. WAITING ON A BED WILL KEEP US POSTED. CONTINUE TO OSBERVE AND MONITOR
--- NOTE | 2017-09-23 08:29 | NUR ---
PT'S BIPAP WAS STOPPED AT THIS TIME AND PLACED ON 4 LITERS OF O2 NC.
--- NOTE | 2017-09-23 10:10 | NUR ---
PT'S PLUMBER IN THE ROOM.WITH PT HER GRANDDAUGHTER IS IN THE WAITING ROOM.
--- NOTE | 2017-09-23 11:23 | NUR ---
MADDISON FROM [facility] STILL NO BEDS AND WILL KEEP CHECKING.
--- NOTE | 2017-09-23 12:00 | NUR ---
PT HAS BEEN VISITING WITH FAMILY AND HER VOCATIONAL PSYCHOLOGIST. IV SITE IS FREE FROM REDNESS OR EDEMA
--- NOTE | 2017-09-23 14:15 | NUR ---
PT HAD A SMALL SMEARED BM WILL TRY AND GET PT TO THE BSC TO FINISH, IV SITE ON LEFT ARM DISCONTINEUD CATHETER INTACT.
--- NOTE | 2017-09-23 14:57 | NUR ---
informed granddaughter re: o2 sat drop while pt is napping. will place back on bipap for a time to restabilize. verbalized understanding.
--- NOTE | 2017-09-23 16:00 | NUR ---
PT IS RELAXING IN BED WITH NO DISTRESS NOTED. IV SITE IS FREE FROM REDNESS OR EDEMA. CONTINUE TO OSBERVE AND MONITOR,.
--- NOTE | 2017-09-23 17:51 | NUR ---
PT IS RELAXING IN BED FAMILY MEMBERS HAVE CALLED TO CHECK UPON PT. IV SITE REMAINS FREE FROM REDNESS OR EDEMA. CONTINUE TO OSBERVE AND MONITOR. ABEL INTACT DRAINING LARGE AMOUNT OF YELLOW URINE.
--- NOTE | 2017-09-23 18:45 | NUR ---
REPORT FROM DANIELLE CHACON. ASSUMED PT. CARE.
--- NOTE | 2017-09-23 19:41 | NUR ---
PT. FOUND AWAKE, ALERT, ORIENTED X 3. 91% ON 4L NC. HR SINUS AT 96. PT. SPEAKS IN FULL SENTENCES. RESPS EVEN, SHALLOW, LABORED. CALL LIGHT REMAINS WITHIN REACH. PT. UPDATED ON PLAN OF CARE AND PENDING BED PLACEMENT AT [facility], BUT NO ICU BED AVAILABLE. PT. TURNED TO RT. SIDE AT THIS TIME PER HER REQUEST. REMAINS WITH DIMINISHED LUNG SOUNDS WITH EXPIRATORY WHEEZES THROUGHOUT.
--- NOTE | 2017-09-23 21:30 | NUR ---
PT. REMAINS AWAKE, ALERT, ORIENTED X 3. DENIES COMPLAINTS AT THIS TIME. PT. REMAINS ON 4L NC. HUMIDIFIED O2 ADDED TO OXYGEN PT. STATES HER NOSE IS DRYING OUT. REMAINS WITH MILDLY LABORED RESPS. SPO2 IS 90% ON 4L NC. DENIES OTHER COMPLAINTS OR NEEDS.
--- NOTE | 2017-09-23 23:00 | NUR ---
PT. RESTING IN BED WITH EYES CLOSED. RESPS REMAIN EVEN, SHALLOW. SLIGHTLY TACHYPENIC. HR REMAINS SINUS ON THE MONITOR. BP STABLE. PT. VOICES NO COMPLAINTS OR CONCERNS AT THIS TIME. PROVIDED WITH NEW PITCHER OF WATER. CALL LIGHT REMAINS WITHIN REACH. WILL CONTINUE TO MONITOR.
[2017-09-24] VITALS (12 sets, daily range): BP systolic 145–178; BP diastolic 66–90
--- NOTE | 2017-09-24 00:42 | NUR ---
PT. PROVIDED WITH HER FROSTY AT THIS TIME PER HER REQUEST. PT. DENIES OTHER COMPLAINTS AT THIS TIME. RESPS REMAIN SHALLOW AND TACHYPENIC. HR REMAINS SINUS-SINUS TACH. BP STABLE. CALL LIGHT REMAINS WIHTIN REACH.
--- NOTE | 2017-09-24 00:56 | NUR ---
PT. REPOSITIONED FOR COMFORT. REMAIN AWAKE, EATING FROSTY AT THIS TIME. NO DISTRESS.
--- NOTE | 2017-09-24 02:54 | NUR ---
RT. CALLED AT THIS TIME. PT. PLACED ON VENTI MASK. PT. BREATHING WITH MOUTH AND NOT THROUGH THE NOSE. SPO2 DECREASES FROM 88-92% DOWN TO 77-79% WHEN BREATHING THROUGH HER MOUTH. ONCE AWAKENED AND PT. STARTS BREATHING THROUGH HER NOSE, SPO2 INCREASES BACK TO 90%. NO RESP DISTRESS NOTED, BUT REMAINS WITH SHALLOW RESPS.
--- NOTE | 2017-09-24 04:15 | NUR ---
LAB AT BEDSIDE AT THIS TIME TO DRAW PT. PT. REMAINS ORIENTED X 3. EASILY AROUSABLE TO LIGHT VERBAL STIMULI. RT ALSO AT BEDSIDE AT THIS TIME TO ADMINISTER NEB TREATMENT. PT. TOLERATING VENTI-MASK WELL. DENIES COMPLAINTS OR NEEDS AT THIS TIME. CALL LIGHT REMAINS WITHIN REACH.
[2017-09-24 04:52] LABS: HEMATOCRIT 31.5 % (37.0-47.0); HEMOGLOBIN 10.3 g/dl (12.0-16.0); IMMATURE GRANULOCYTES 1.9 % (0.0-1.0); MEAN CORPUSCULAR HGB 28.8 pG CALC (26.0-32.0); MEAN CORPUSCULAR HGB CONC 32.7 g/L CALC (32.0-36.0); NEUT# 5.87 thou/uL (2.00-7.15); RED BLOOD COUNT 3.58 mill/uL (4.20-5.60); RED CELL DISTRI WIDTH 15.8 % (11.5-15.5)
[2017-09-24 05:02] LABS: BUN 22 mg/dL (8-23); BUN/CREATININE RATIO 23 (12-20 (CALC)); CHLORIDE 85 mmol/l (95-108); CREATININE 0.9 mg/dL (0.5-1.0); GFR 60 ML/MIN (>=60 (CALC)); GFR FOR AFR.AMER. > 60 ML/MIN (>=60 (CALC)); POTASSIUM 3.3 mmol/l (3.5-5.1); SODIUM 136 mmol/l (137-146)
[2017-09-24 05:09] LABS: ANION GAP 10 (6-22 (CALC))
[2017-09-24 05:10] LABS: CARBON DIOXIDE 44 mmol/l (22-30)
--- NOTE | 2017-09-24 06:16 | NUR ---
PT. REPOSITIONED FOR COMFORT. MAXIPIME INFUSING WITHOUT SX OF INFILTRATION OR EXTRAVASATION. IV MAINTAINS A GOOD BLOOD RETURN. CONTINUES ON VENTIMASK AT THIS TIME. PT. STATES TOLERATING IT WELL. RESPS REMAIN EVEN AND SHALLOW, SLIGHTLY LABORED. VSS. CALL LIGHT REMAINS WITHIN REACH. APPROX 750 CC URINE EMPTIED FROM ABEL CATH.-
--- NOTE | 2017-09-24 07:25 | NUR ---
PT ALERT AND ORIENTED, RESTING IN BED WITH VENTI MASK ON AT 40%, LUNGS COARSE AND DIMINISHED WITH EXPIRATORY WHEEZES TOLERATES VENTI MASK, LABORED RESPS WITH EXERTION NOTED, ENCOURGAED TO RESP PRN A PT COMPLAINS OF GENERAL BACK ACHE RELATED TO LAYING IN BED, BUT DENIES NEED FOR PAIN MEDICATION AT THIS TIME AM ASSESSMENT COMPLETED, SEE INTERVENTIONS, ABEL INTACT DRAINING CLEAR YELLOW URINE, WITH CATH SECURITY DEVICE INTACT ON R UPPER THIGH, IV ACCESS R FA WITH IVF INFUSING AT O SITE, TELE READING SR RATE IN THE 90-110 RANGE WITH PAC'S NOTED, CALL MATTHEW WITHIN REACH, SAFETY MEASURES REINFORCED, AND ENCOURAGED TO CALL FOR ANY NEEDED ASSISTANCE.
--- NOTE | 2017-09-24 08:00 | NUR ---
SET UP ASSIST PROVIDED FOR AM MEAL, ENCOURAGED TO EAT SLOWLY AND REPLACE MASK WHILE CHEWING, VERBALIZES / DEMONSTRATES UNDERSTANDING.
--- NOTE | 2017-09-24 08:29 | NUR ---
PT OOB TO RECLINER PER PT REQUEST, SOME MILD WEAKNESS NOTED AND LABORED RESPS WITH EXERTION, ENCOURAGED TO REST CALL MATTHEW WITHIN REACH
--- NOTE | 2017-09-24 09:45 | NUR ---
PT SITTING UP IN RECLINER, TOLERATING WELL, PLANNED BATH PRIOR TO RETURN TO BED, PT VERBALIZES AGREEANCE, FULL LINEN CHANGE COMPLETED AT THIS TIME.
--- NOTE | 2017-09-24 10:30 | NUR ---
COMPLETE BATH DONE WHILE PT SITTING IN CHAIR, ABEL CARE AND MOUTH CARE PROVIDED INCLDUING REMOVAL AND CLEANING OF DENTURES, HAIR COMBED AND PLACED UP PER PT REQUEST, REMAINS ON 40% VENTI MASK AND TOLERATES WELL, TAKES PO MEDICATION THIS MA WITHOUT INCIDENT, MAG BOLUS GIVEN ORDERED, BACK TO BED WITH MOD ASSIST, PT NOTICEABLY MORE WEAK THAN WHEN THIS NURSE ASSISTED HER 4 ON Tuesday09/20/17, REPOSITIONED FOR COMFORT, CALL MATTHEW WITHIN REACH, WILL CONTINUE TO MONITOR.
--- NOTE | 2017-09-24 11:15 | NUR ---
PT SPEAKING WITH DAUGHTER ON CORDLESS PHONE, TOLERATES WELL, WILL CONTINUE TO MONITOR.
--- NOTE | 2017-09-24 11:55 | NUR ---
MEDICATED FOR ANXIETY AND COMPLAINTS OF BACK DISCOMFORT, FAMILY MEMBERS AT BEDSIDE, WILL CONTINUE TO MONITOR.
--- NOTE | 2017-09-24 13:15 | NUR ---
PT VISITING WITH FAMILY, RESTING NEEDED, CALL MATTHEW WITHIN REACH, WILL CONTINUE TO MONITOR.
--- NOTE | 2017-09-24 13:27 | NUR ---
PT REQUESTED TO HOLD OFF ON SUPPOSITORY UNTIL LATER THIS AFTERNOON, WILL CONTINUE TO MONITOR
--- NOTE | 2017-09-24 15:00 | NUR ---
pt resting in bed, family members intermittenly at bedside, call samayoa within reach, continues to tolerate 40% venti mask and maintain o2 sats 92% and better. call samayoa within reach
--- NOTE | 2017-09-24 15:47 | NUR ---
pt resting, no family members currently at bedside, comfort measures provided, call samayoa within reach.
--- NOTE | 2017-09-24 16:34 | NUR ---
PT DOZING, OFFERS NO NEW COMPLAINTS, COMFORT MEASURES PROVIDED, CONTINUE TO TOLERATE VENTI MASK, WILL CONTINUE TO MONITOR.
--- NOTE | 2017-09-24 19:00 | NUR ---
PT SITTING UP IN BED WATCHING TV. PT IS ALERT AND ORIENTED X3. PERRLA. RESP ARE IRREGULAR AND LABORED AT TIMES. VENT MASK IN PLACE. NO DISTRESS NOTED. HR REGULAR. PULSES PALPABLE THROUGHOUT. NO EDEMA NOTED. BS ACTIVE. ABEL DRAINING CLEAR YELLOW URINE. #22 RFA. NS @KVO. NO REDNESS OR EDEMA NOTED. WILL CONTINUE TO MONITOR
--- NOTE | 2017-09-24 22:00 | NUR ---
PT RESTING IN BED WITH EYES OPEN. RESP ARE EVEN AND UNLABORED. NO DISTRESS NOTED. WILL CONTINUE TO MONITOR
--- NOTE | 2017-09-24 22:49 | NUR ---
APRESOLINE 10MG GIVEN IV PUSH FOR BP OF 170/82
--- NOTE | 2017-09-24 23:45 | NUR ---
BP RECHECK POST APRESOLINE 135/66.
[2017-09-25] VITALS: BP 135/66
--- NOTE | 2017-09-25 | NUR ---
PT RESTING IN BED WITH EYES CLOSED. RESP ARE EVEN AND UNLABORED. NO DISTRESS NOTED. WILL CONTINUE TO MONITOR
[2017-09-25 02:00] VITALS: BP 148/77
--- NOTE | 2017-09-25 02:19 | NUR ---
PT STATES THAT SHE IS HAVING BACK PAIN. INSTRUCTED PT THAT SHE WAS MEDICATED WITH TRAMADOL EARLIER TONIGHT. PT REQUESTED TYLENOL. PT MEDICATED PER REQUEST
[2017-09-25 04:00] VITALS: BP 167/80
--- NOTE | 2017-09-25 04:18 | NUR ---
PT RESTING IN BED AWAKE. RESP ARE EVEN AND UNLABORED. NO DISTRESS NOTED. WILL CONTINUE TO MONITOR
--- NOTE | 2017-09-25 04:30 | NUR ---
LAB INTO DRAW AM LABS
[2017-09-25 05:09] LABS: HEMATOCRIT 32.7 % (37.0-47.0); HEMOGLOBIN 10.5 g/dl (12.0-16.0); MEAN CELL VOLUME 87.9 fL CALC (80.0-100.0); MEAN CORPUSCULAR HGB 28.2 pG CALC (26.0-32.0); MEAN CORPUSCULAR HGB CONC 32.1 g/L CALC (32.0-36.0); RED BLOOD COUNT 3.72 mill/uL (4.20-5.60); RED CELL DISTRI WIDTH 15.7 % (11.5-15.5)
[2017-09-25 05:29] LABS: BUN 23 mg/dL (8-23); BUN/CREATININE RATIO 28 (12-20 (CALC)); CHLORIDE 83 mmol/l (95-108); CREATININE 0.8 mg/dL (0.5-1.0); GFR > 60 ML/MIN (>=60 (CALC)); GFR FOR AFR.AMER. > 60 ML/MIN (>=60 (CALC)); POTASSIUM 3.8 mmol/l (3.5-5.1); SODIUM 134 mmol/l (137-146)
[2017-09-25 05:36] LABS: ANION GAP 13 (6-22 (CALC))
[2017-09-25 05:41] LABS: CARBON DIOXIDE 42 mmol/l (22-30)
--- NOTE | 2017-09-25 05:46 | NUR ---
PT RESTING IN BED AWAKE. LAB CALLED AND STATES THAT CO2 42. WHICH IS LOWER THAN YESTERDAY.
[2017-09-25 06:00] VITALS: BP 160/74
--- NOTE | 2017-09-25 07:20 | NUR ---
PT ALERT AND ORIENTED, RESTING IN BED WITH VENTI MASK ON AT 40%, SATS 95-97% LUNGS REMAIN COARSE AND DIMINISHED WITH EXPIRATORY WHEEZES TOLERATES VENTI MASK, LABORED RESPS WITH EXERTION NOTED, ENCOURGAED TO RESP PRN PT VERBALIZES UNDERSTNADING, STATES FEELING "REALLY GOOD TODAY" " I'M READY TO GO HOME", AM ASSESSMENT COMPLETED, SEE INTERVENTIONS, ABEL INTACT DRAINING CLEAR YELLOW URINE, WITH CATH SECURITY DEVICE INTACT ON R UPPER THIGH, IV ACCESS R FA WITH IVF INFUSING AT KVO SITE, TELE READING SR RATE IN THE 90-110 RANGE WITH PAC'S NOTED, CALL MATTHEW WITHIN REACH, SAFETY MEASURES REINFORCED, AND ENCOURAGED TO CALL FOR ANY NEEDED ASSISTANCE.
--- NOTE | 2017-09-25 07:45 | NUR ---
SET UP ASSIST FOR AM MEAL, ENCOURAGED TO TAKE HER TIME AND REST NEEDED. PT REPEATEDLY STATES HOW GOOD SHE IS FEELING AND HOPING TO GO HOME.CALL VIPUL BAY WITHIN REACH
[2017-09-25 08:00] VITALS: BP 162/80
--- NOTE | 2017-09-25 08:30 | NUR ---
GOO INTAKE FOR AM MEAL PT RESTING OFFERS NO NEW COMPLAINTS, CALL MATTHEW WITHIN REACH
--- NOTE | 2017-09-25 09:30 | NUR ---
TAKES PO MEDICATIONS WELL, CALL MATTHEW WITHIN REACH, WILL CONTINUE TO MONITOR.
[2017-09-25] MEDS ORDERED: ELIQUIS2.5 MG PO (09:56)
[2017-09-25] MEDS ORDERED: VANTIN200 M1 PO (09:56)
[2017-09-25] MEDS ORDERED: CORDARONE/200 MG/TAB PO (09:56)
[2017-09-25] MEDS ORDERED: PREDNISONE10 MG PO (09:56)
[2017-09-25] MEDS ORDERED: SURFAK240 MG/CAP PO (09:56)
[2017-09-25 10:00] VITALS: BP 164/81
--- NOTE | 2017-09-25 10:05 | NUR ---
FAMILY MEMBERS AT BEDSIDE, COMFORT MEASURES PROVIDED, CALL MATTHEW WITHIN REACH, WILL CONTINUE TO MONITOR.
--- NOTE | 2017-09-25 11:02 | NUR ---
ABEL CATH REMOVED ORDERED, PT AWARE OF NEED TO VOID PRIOR TO PLANNED D/C , CALL MATTHEW WITHIN REACH
--- NOTE | 2017-09-25 12:07 | NUR ---
SPOKE WITH PATIENT AT LENGTH REGARDING STOPPING SMOKING AND RESTING AT HOME, AND PACING HERSELF WITH ACTIVITY. FAMILY AT BEDSIDE DURING EDUCATION. ALL VERBALIZE UNDERSTANDING.
--- NOTE | 2017-09-25 12:47 | NUR ---
SPOKE WITH REGARDING HOME HEALTH, IS AGREEABLE TO COVERING PT HOME HEALTH ORDERS UNTIL PT ABLE TO BE SEEN HER PRIMARY CARE PHYSICIAN.
--- NOTE | 2017-09-25 13:00 | NUR ---
PT HAD LG INCONTINENT URINE, DID ASTON CARE AND GOT PT READY FOR D/C. PT REQUESTED TO SIT UP IN THE RECLINER, O2 IN PLACE, CALL LIGHT IN REACH.
--- NOTE | 2017-09-25 13:45 | NUR ---
ORIGINAL DNR FOR SENT WITH PATIENT
--- NOTE | 2017-09-25 13:55 | NUR ---
Discharge instructions given. Patient verbalizes understanding of same. Discharged in stable condition via Wheelchair to Home with family. All belongings sent with pt.
== END 2017-09-25 13:55 | DRG 871 ==
LOC: ED 23:39 → ED-I 09-19 01:55 → ED 09-19 02:17 → ICU 09-19 02:18
PROVIDERS: Emergency Medicine; Internal Medicine; Nurse Practitioner Family; ADMIT Internal Medicine; ATTEND Internal Medicine
PROC: 0T9B70Z Drainage of Bladder with Drainage Device, Via Natural or Artificial Opening (ICD-10-PCS; principal; 2017-09-19)
PROC: 5A09457 Assistance with Respiratory Ventilation, 24-96 Consecutive Hours, Continuous Positive Airway Pressure (ICD-10-PCS; 2017-09-21)
DX: A41.9 Sepsis, unspecified organism (principal); J96.22 Acute and chronic respiratory failure with hypercapnia; J96.21 Acute and chronic respiratory failure with hypoxia; N17.9 Acute kidney failure, unspecified; E87.3 Alkalosis; I13.0 Hypertensive heart and chronic kidney disease with heart failure and stage 1 through stage 4 chronic kidney disease, or unspecified chronic kidney disease; J18.9 Pneumonia, unspecified organism; I48.91 Unspecified atrial fibrillation; I50.22 Chronic systolic (congestive) heart failure; J44.0 Chronic obstructive pulmonary disease with (acute) lower respiratory infection; J44.1 Chronic obstructive pulmonary disease with (acute) exacerbation; E87.1 Hypo-osmolality and hyponatremia; Z99.81 Dependence on supplemental oxygen; E86.0 Dehydration; R65.20 Severe sepsis without septic shock; F17.210 Nicotine dependence, cigarettes, uncomplicated; I10 Essential (primary) hypertension; M48.00 Spinal stenosis, site unspecified; E83.42 Hypomagnesemia; Z66 Do not resuscitate; I71.4 Abdominal aortic aneurysm, without rupture; I65.23 Occlusion and stenosis of bilateral carotid arteries; E78.5 Hyperlipidemia, unspecified; N18.3 Chronic kidney disease, stage 3 (moderate); K59.00 Constipation, unspecified
CPT/HCPCS: J0282; J0692; J3370

== ENCOUNTER 2018-02-10 11:41 | Inpatient (IN) | payer MEDICARE, MEDICAID ==
[~2018-02-10] VITALS: Ht 157.5 cm; Wt 75.8 kg
[~2018-02-10 11:41] MED LIST changes: +ANORO ELLIPTA 61 AER PO; +BUDESONID2; +BUMETANIDE1 MG PO; +COMBIVENT RESPIMAT PO; +CORDARONE/200 MG/TAB PO; +DOXEPIN HCL10 MG PO; +DUONEB PO; +ELIQUIS2.5 MG PO; +LIPITOR10 M1 PO; +POTASSIUM CHLO10 MEQ PO; +ROPINIROLE HCL0.5 MG PO; +SERTRALINE HCL25 MG PO; +SURFAK240 MG/CAP PO; +TEMAZEPAM15 MG PO; +VANTIN200 M1 PO
--- NOTE | 2018-02-10 11:53 | NUR ---
PATIENT TO ROOM VIA WHEELCHAIR AND PHYSICIAN AT BEDSIDE FOR EVAL
--- NOTE | 2018-02-10 12:05 | NUR ---
PT C/O COUGH x"COUPLE DAYS", BECAME PRODUCTIVE LAST NIGHT W/YELLOW SPUTUM. WORSENED SOB THIS AM. PT OUT OF SOME MEDICINES.
[2018-02-10 12:28] LABS: HEMATOCRIT 29.5 % (37.0-47.0); HEMOGLOBIN 9.2 g/dl (12.0-16.0); IMMATURE GRANULOCYTES 0.6 % (0.0-1.0); MEAN CELL VOLUME 88.3 fL CALC (80.0-100.0); MEAN CORPUSCULAR HGB 27.5 pG CALC (26.0-32.0); MEAN CORPUSCULAR HGB CONC 31.2 g/L CALC (32.0-36.0); NEUT# 13.59 thou/uL (2.00-7.15); RED BLOOD COUNT 3.34 mill/uL (4.20-5.60); RED CELL DISTRI WIDTH 15.9 % (11.5-15.5)
--- NOTE | 2018-02-10 12:28 | NUR ---
RT FINISHED DUONEBS. PT SITTING IN HIGH RUCKER POSITION, WATCHING TV. PT STATES SHE WORE A SPORTS BRA SO SHE WOULDNT HAVE TO CHANGE INTO A GOWN.
[2018-02-10 12:44] LABS: ALKALINE PHOSPHATASE 107 u/l (38-126); ANION GAP 10 (6-22 (CALC)); BILIRUBIN, TOTAL 0.5 mg/dL (0.0-1.4); BUN 20 mg/dL (8-23); BUN/CREATININE RATIO 22 (12-20 (CALC)); CARBON DIOXIDE 37 mmol/l (22-30); CHLORIDE 89 mmol/l (95-108); CREATININE 0.9 mg/dL (0.5-1.0); GFR 60 ML/MIN (>=60 (CALC)); GFR FOR AFR.AMER. > 60 ML/MIN (>=60 (CALC)); POTASSIUM 4.3 mmol/l (3.5-5.1); SGOT/AST 22 u/l (9-36); SGPT/ALT 31 u/l (11-66); SODIUM 132 mmol/l (137-146)
[2018-02-10 12:53] LABS: ALBUMIN 3.7 g/dL (3.2-5.0); TOTAL PROTEIN 7.3 g/dL (6.3-8.2)
[2018-02-10 12:56] LABS: MYOGLOBIN 82 ng/mL (0 - 62)
--- NOTE | 2018-02-10 13:02 | NUR ---
PT FREQUENTLY LEARNING AND DEVELOPMENT ADMINISTRATOR MATTHEW. VISITOR AT BEDSIDE. WILL CONTINUE TO MONITOR.
--- NOTE | 2018-02-10 13:17 | NUR ---
PT ASSISTED UP TO BEDSIDE COMMODE.
--- NOTE | 2018-02-10 13:46 | NUR ---
PT CONTUINUES TO BE CONSTANTLY ON CALLBELL. DISPO PENDING TEST RESULTS.
[2018-02-10 13:54] LABS: URINE BILIRUBIN - DIPSTICK NEGATIVE (NEGATIVE); URINE BLOOD DIPSTICK SMALL (NEGATIVE); URINE COLOR YELLOW; URINE GLUCOSE - DIPSTICK NEGATIVE (NEGATIVE); URINE KETONE NEGATIVE (NEGATIVE); URINE LEUK ESTERASE NEGATIVE (NEGATIVE); URINE NITRITE - DIPSTICK NEGATIVE (Negative); URINE PROTEIN - DIPSTICK 30 mg/dL (NEG-TRACE); URINE SPECIFIC GRAVITY 1.015; URINE UROBILINOGEN - DIPSTICK 0.2 E.U./dL (0.2)
[2018-02-10 13:57] LABS: URINE CLARITY SL CLOUDY; URINE EPITHELIAL CELLS MODERATE EPI/hpf (0-FEW)
--- NOTE | 2018-02-10 14:00 | NUR ---
PHARMACY CONSULT PLACED. PT DOES NOT HAVE A MED LIST AND STATES SHE ONLY KNOWS A COUPLE MEDS. MED LIST NOT COMPLETED.
--- NOTE | 2018-02-10 14:12 | NUR ---
RECVING RAFFY WCB
--- NOTE | 2018-02-10 14:34 | NUR ---
Admission Note Report Given to: YOMAIRA Transported by: Wheelchair X Stretcher Transported with: X Nurse Transporter X Patent IV X O2 X Senior Teradata Developer
[2018-02-10] MEDS ORDERED: FLONASE AL50 MCG/ACT NAB (16:17)
[2018-02-10] MEDS ORDERED: TYLENOL 500MG TAB PO (16:18)
[2018-02-10 16:26] VITALS: BP 146/80
--- NOTE | 2018-02-10 16:38 | NUR ---
MED REC COMPLETED. PT STATES NO FURTHER QUESTIONS.
--- NOTE | 2018-02-10 16:45 | NUR ---
PT ADMITTED TO [facility] VIA STRETCHER ACCOMPANIED BY ER STAFF. PT ALERT AND ORIENTED X3, AMBULATED WITH UNSTEADY GAIT PT STATES SHE DOES NOT USE A WALKER AT HOME BUT USES THE FURNITURE AT HOME TO GET AROUND. PT BREATHING LABORED AND GRUNTING PT USES O2 3L NC AT HOME, CONTINUED IN ROOM. DISCUSSED POC, PT IN AGREEMENT, CONTINUE TO MONITOR. CALL LIGHT IN REACH.
[2018-02-10 19:00] VITALS: BP 140/79
--- NOTE | 2018-02-10 20:10 | NUR ---
PT. IS UPRIGHT IN RECLINER, FAMILY IS JUST LEAVING FOR THE NIGHT. PT.REPORTS FEELING MUCH BETTER THIS EVENING, STATES PAIN ONLY WHEN MOVING AROUND, DENIES ANY NEEDS AT THIS TIME. POC DISCUSSED W/PT, SHE REPORTS WANTING TO SIT IN RECLINER FOR A WHILE LONGER, BUT INSTRUCTED TO CALL US FOR ASSISTANCE WHEN SHE WANTS TO MOVE TO THE BED. WILL CONTINUE TO MONITOR AND FOLLOW-UP.
--- NOTE | 2018-02-10 22:12 | NUR ---
PT.REQUESTED HER FLONASE, REPORTING THAT SHE "TAKES IT AT LEAST 3X/NIGHT." I EXPLAINED TO HER THAT THE PHYSICIAN HAS REVIEWED HER MED LIST AND PLACED A HOLD ON FLONASE, BUT THAT WE CAN REQUEST THAT IT BE CONTINUED IN THE AM. PT.REPORTS THAT SHE IS "NOT FEELING ANY BETTER AND I AM GOING HOME TOMORROW, REGARDLESS." PT.ASSISTED IN REPOSITIONING, PT.APPEARS STABLE W/OUT DISTRESS AT THIS TIME. O2 SAT LEVELS ARE 89-91% ON O2@3LNC AT THIS TIME. PT.DENIES THAT I CAN BRING HER ANYTHING ELSE TO MAKE HER MORE COMFORTABLE AT THIS TIME. RESPIRATORY IS ON FLOOR AND GOING IN TO WORK W/PT. CALL LIGHT IS AT BEDSIDE AND PT.ENCOURAGED TO CALL IF ANY NEEDS ARISE.
[2018-02-11 01:25] VITALS: BP 132/66
--- NOTE | 2018-02-11 02:50 | NUR ---
PT.ASSISTED TO BSC AND BACK TO BED. PT PROVIDED W/EXTRA PILLOW, BLANKET, AC ADJUSTED, ICE FOR HER TEA. DISCUSSED PT.HAVING DIFFICULTY SLEEPING AND DRINKING TEA TO THAT WILL KEEP HER AWAKE. PT.DENIED TEA HAS THAT AFFECT. NO S/S OF DISTRESS, LESS SOB NOTED UPON AMBULATION/LUNG SOUNDS IMPROVED AT THIS TIME. CALL LIGHT IS AT BEDSIDE AND PT.ENCOURAGED TO CALL IF ANY NEEDS ARISE.
[2018-02-11 04:31] VITALS: BP 137/79
--- NOTE | 2018-02-11 05:41 | NUR ---
RESPIRATORY IS IN W/PT AT THIS TIME, PT.REPORTS THAT SHE IS GOING HOME IN THE MORNING FIRST THING. POC DISCUSSED W/PT.
[2018-02-11 06:17] LABS: HEMATOCRIT 27.3 % (37.0-47.0); HEMOGLOBIN 8.7 g/dl (12.0-16.0); IMMATURE GRANULOCYTES 0.4 % (0.0-1.0); MEAN CELL VOLUME 87.8 fL CALC (80.0-100.0); MEAN CORPUSCULAR HGB CONC 31.9 g/L CALC (32.0-36.0); NEUT# 9.65 thou/uL (2.00-7.15); RED BLOOD COUNT 3.11 mill/uL (4.20-5.60); RED CELL DISTRI WIDTH 15.5 % (11.5-15.5)
[2018-02-11 06:27] LABS: ANION GAP 10 (6-22 (CALC)); BUN 17 mg/dL (8-23); BUN/CREATININE RATIO 23 (12-20 (CALC)); CARBON DIOXIDE 37 mmol/l (22-30); CHLORIDE 91 mmol/l (95-108); CREATININE 0.7 mg/dL (0.5-1.0); GFR > 60 ML/MIN (>=60 (CALC)); GFR FOR AFR.AMER. > 60 ML/MIN (>=60 (CALC)); MAGNESIUM 1.8 mg/dL (1.6-2.3); POTASSIUM 4.5 mmol/l (3.5-5.1); SODIUM 134 mmol/l (137-146)
[2018-02-11 08:56] VITALS: BP 143/74
[2018-02-11] MEDS ORDERED: ROPINIROLE HCL0.5 MG PO (09:43)
--- NOTE | 2018-02-11 11:26 | NUR ---
PT RESTING IN BED, GRANDDAUGHTER AT BEDSIDE, NO SIGNS OF DISTRESS NOTED,RESP EVEN AND UNLABORED. CALL LIGHT IN REACH,CONTINUE TO MONITOR.
--- NOTE | 2018-02-11 12:10 | NUR ---
PT AMBULATING HALLWAY WITH PEDIATRIC PHYSICAL THERAPY ASSISTANT, PT STABLE, CONTINUE TO MONITOR.
[2018-02-11 12:47] VITALS: BP 145/85
[2018-02-11] MEDS ORDERED: Levaquin PO (13:36)
[2018-02-11] MEDS ORDERED: PREDNISONE10 MG PO (13:37)
== END 2018-02-11 15:30 | disposition home or self-care (01) | DRG 189 ==
LOC: ED 11:41 → ED-I 13:38 → ED 13:50 → MS2 13:51
PROVIDERS: Emergency Medicine; Nurse Practitioner Family; ADMIT Internal Medicine; ATTEND Internal Medicine
DX: J96.21 Acute and chronic respiratory failure with hypoxia (principal); J44.1 Chronic obstructive pulmonary disease with (acute) exacerbation; I50.22 Chronic systolic (congestive) heart failure; J96.22 Acute and chronic respiratory failure with hypercapnia; I11.0 Hypertensive heart disease with heart failure; F17.210 Nicotine dependence, cigarettes, uncomplicated; I48.0 Paroxysmal atrial fibrillation; I71.4 Abdominal aortic aneurysm, without rupture; F41.8 Other specified anxiety disorders; Z91.19 Patient's noncompliance with other medical treatment and regimen; Z79.01 Long term (current) use of anticoagulants

== ENCOUNTER 2018-07-11 16:28 | Inpatient (IN) | payer MEDICARE, MEDICAID ==
[~2018-07-11] VITALS: Ht 157.5 cm; Wt 75.6 kg
[2018-07-11] VITALS (8 sets, daily range): BP systolic 91–117; BP diastolic 42–62
[~2018-07-11 16:28] MED LIST changes: +FLONASE AL50 MCG/ACT NAB; +Levaquin PO; +TYLENOL 500MG TAB PO
--- NOTE | 2018-07-11 16:28 | NUR ---
Pt immediately to room # 12 via W/C for bedside triage
[2018-07-11 17:07] LABS: HEMATOCRIT 31.7 % (37.0-47.0); HEMOGLOBIN 10.4 g/dl (12.0-16.0); IMMATURE GRANULOCYTES 0.3 % (0.0-5.0); MEAN CELL VOLUME 90.8 fL CALC (80.0-100.0); MEAN CORPUSCULAR HGB 29.8 pG CALC (26.0-32.0); MEAN CORPUSCULAR HGB CONC 32.8 g/L CALC (32.0-36.0); NEUT# 11.65 thou/uL (2.00-7.15); RED BLOOD COUNT 3.49 mill/uL (4.20-5.60); RED CELL DISTRI WIDTH 15.1 % (11.5-15.5)
--- NOTE | 2018-07-11 17:28 | NUR ---
PT BREATHING HAS IMPROVED, PT NO LONGER STATES HAVING DIFFICULTY BRETHING, BOTH IV'S PATENT WITH FLUIDS RUNNING.
[2018-07-11 17:31] LABS: ALBUMIN 3.6 g/dL (3.2-5.0); BILIRUBIN, TOTAL 1.1 mg/dL (0.0-1.4); CREATININE 1.2 mg/dL (0.5-1.0); POTASSIUM 4.2 mmol/l (3.5-5.1); TOTAL PROTEIN 6.7 g/dL (6.3-8.2)
--- NOTE | 2018-07-11 18:28 | NUR ---
PT CONTINUING ON BIPAP- STATES INCREASING EASE OF BREATHING, AWAITING ADMISSION.
--- NOTE | 2018-07-11 18:45 | NUR ---
REPORT CALLED TO SUMIT RN- ACCEPTED PT
--- NOTE | 2018-07-11 19:00 | NUR ---
PT ARRIVED TO UNIT VIA STRETCHER WITH ER STAFF; ALERT AND ORIENTED. REPIRATIONS SHALLOW AND LABORED. PT REMOVED BIPAP MASK DURING TRANSPORT; ENCOURAGEMENT NEEDED TO REPLACE MASK. PT REQUESTING FOOD AND DRINK; PT INFORMED THAT NO FOOD OR DRINK WOULD BE GIVEN AT THIS TIME R/T POTENTIAL COMPLICATIONS AND RESPIRATORY STATUS; PT WITH GENERAL COMPLAINTS THAT SHE CANNOT EAT AND DOESN'T WANT TO CHANGE INTO A GOWN, ETC. OXYGEN SATURATION 86% ON NASAL CANNULA; INCREASED TO 97% ON BIPAP WHEN APPLIED. DENIES PAIN CURRENTLY. ORIENTED TO ROOM AND CALL LIGHT SYSTEM. PLAN OF CARE DISCUSSED. PT ENCOURAGED TO VERBALIZE CONCERNS. STATES UNDERSTANDING. SAFETY MEASURES IN PLACE. CALL LIGHT WITHIN REACH.
--- NOTE | 2018-07-11 19:00 | NUR ---
PT UNWILLING TO TAKE SHIRT OFF AND PUT GOWN ON
--- NOTE | 2018-07-11 19:10 | NUR ---
Admission Note Report Given to: SUMIT AKBAR Transported by: Wheelchair X Stretcher Transported with: X Nurse Transporter X Patent IV X O2 X Drug Discovery Informatics Specialist TRANSPORTED TO ICU 8 WITHOUT INCIDENT
--- NOTE | 2018-07-11 20:20 | NUR ---
VS STABLE; ASSESSMENT COMPLETED. MED REC REVIEWED WITH PT. IV FLUIDS INITIATED; IV SITES TO BILATERAL ANTICUBITALS APPEAR HEALTHY AND FLUSH. CONNIE HOSE APPLIED. PT CONTINUES TO REQUEST WATER; PT ENCOURAGED TO WAIT UNTIL REPSIRATORY STATUS HAS IMPROVED. HOB ELEVATED.
--- NOTE | 2018-07-11 21:18 | NUR ---
PT RESTING IN WITH EYES CLOSED IN SEMI FOWLERS POSITION WITH BIPAP ON; RESPIRATIONS ARE NOW EVEN AND UNLABORED; OXYGEN SATURATION 96%. NO SIGNS OF DISTRESS.
--- NOTE | 2018-07-11 22:04 | NUR ---
PT ASSISTED TO BSC TO VOID CLEAR, YELLOW URINE. SPECIMEN OBTAINED AND SENT TO LAB.
[2018-07-11 22:06] LABS: URINE BILIRUBIN - DIPSTICK NEGATIVE (NEGATIVE); URINE BLOOD DIPSTICK SMALL (NEGATIVE); URINE COLOR YELLOW; URINE GLUCOSE - DIPSTICK NEGATIVE (NEGATIVE); URINE KETONE NEGATIVE (NEGATIVE); URINE LEUK ESTERASE NEGATIVE (NEGATIVE); URINE NITRITE - DIPSTICK NEGATIVE (Negative); URINE PROTEIN - DIPSTICK TRACE mg/dL (NEG-TRACE); URINE UROBILINOGEN - DIPSTICK 0.2 E.U./dL (0.2)
[2018-07-11 22:08] LABS: URINE CLARITY CLEAR
[2018-07-11 22:18] LABS: URINE SQUAMOUS EPITHELIAL CELL FEW EPI/hpf (0-FEW); URINE WBC 0-2 WBC/hpf (0-5)
[2018-07-12] VITALS (10 sets, daily range): BP systolic 106–147; BP diastolic 47–78
--- NOTE | 2018-07-12 | NUR ---
PT ASLEEP AT THIS TIME WITH NO SIGNS OF DISTRESS IN SEMI FOWLERS. RESPIRATIONS EVEN AND UNLABAORED ON BIPAP AT 32% HUMIDIFIED OXYGEN. IV FLUIDS INFUSING WITHOUT DIFFICULTY; IV SITE APPEARS HEALTHY. SAFETY MEASURES IN PLACE. CALL LIGHT WITHIN REACH.
--- NOTE | 2018-07-12 01:35 | NUR ---
PT BECAME ANXIOUS AND DEMANDED HER CPAP BE REMOVED TO HAVE A DRINK AND STATES, "AND I DON'T WANT WATER." ONLY WATER OFFERED TO PT AND LIP MOISTURIZER APPLIED. OXYGEN SATURATION DECREASED TO 87% ON ROOM AIR. BIPAP REPLACED AND OXYGEN SATURATION NOW 100%. ASSISTED TO BSC TO VOID. TEMPERATURE DOWN TO 96.9. PT HAS NO OTHER REQUESTS OR COMPLAINTS AT THIS TIME. CALL LIGHT WITHIN REACH.
--- NOTE | 2018-07-12 04:25 | NUR ---
NO CHANGES IN CONDITION. IV INTACT. PT AWAKNES SPONTANEOUSLY.
--- NOTE | 2018-07-12 05:01 | NUR ---
BIPAP REMOVED AT 0440 BY REQUEST OF PT FOR COMFORT; HAS REMAINED ABOVE 90% OXYGEN SATURATION ON 2L OF OXYGEN VIA NC SINCE. ASSISTED TO BSC AGAIN TO VOID; ASTON CARE GIVEN.
--- NOTE | 2018-07-12 05:59 | NUR ---
PT SITTING UP IN BED; AWAKE AND ALERT. REQUESTED TELEPHONE TO CALL FAMILY. OXYGEN SATURATION 95% ON 2L OXYGEN VIA NC. PT HAS PRODUCTIVE COUGH WITH SMALL AMOUNT OF CLEAR THIN SPUTUM.
--- NOTE | 2018-07-12 06:45 | NUR ---
RECIEVED REPORT FROM DIANE ARANA PT CARE.
--- NOTE | 2018-07-12 07:30 | NUR ---
PT A&OX3, ABLE TO MAKE NEEDS KNOW. ST ON TELEMETRY, PT DENIES CHEST PAIN AT THIS TIME. PT RESPIRATIONS LABORED, PURSED LIPS, ESPECIALLY WITH EXERTION. SA02@92% ON 2LPM VIA NC. LS COARSE/WHEEZING THROUGHOUT. PT CONTINUES WITH WET, PRODUCTIVE COUGH.ABDOMEN SOFT, NON-TENDER, DISTENDED. LAST BM 07-10-18. BSX4 ACTIVE. PT AFEBRILE. CONNIE'S BLE IN PLACE. 20G TO RAC/ SL, 20G TO LAC INFUSING NS@100ML/HR, NO S/S OF INFILTRATION OR REDNESS NOTED AT THIS TIME. PT RESTING IN BED, CALL LIGHT IN REACH, WILL MONITOR.
--- NOTE | 2018-07-12 07:45 | NUR ---
DIETARY ON UNIT, BREAKFAST TRAY SET UP.
--- NOTE | 2018-07-12 08:00 | NUR ---
PT ASSISTED TO BSC, PT HAD M BM, SOFT, BROWN. PT ASSISTED BACK TO BED, CALL LIGHT IN REACH. WILL MONITOR.
--- NOTE | 2018-07-12 08:07 | NUR ---
PT FAMILY A BEDSIDE, SON BROUGHT PT A SAUSAGE BISCUIT FROM . PT EDUCATED ON HEART HEALTHY DIET, PT STATED "I'M ON A BELLY HAPPY DIET".WILL MONITOR.
--- NOTE | 2018-07-12 09:30 | NUR ---
PT ASSISTED TO BSC, THEN BACK TO BED. PT ASKED WHERE THE WAS, STATED "I'M GOING HOME TODAY, I AM NOT SPENDING THE NIGHT HEREW AGAIN, IF I , I AM DYING AT HOME. PT EDUCATED ON THE RISKS OF LEAVING AMA. PT STATED SHE KNOWS THE RISKS AND SHE IS LEAVING."
--- NOTE | 2018-07-12 09:30 | NUR ---
PT RESTING IN BED, ALERT AND ORIENTED, URINAL WITHIN REACH, OFFERS NO NEW COMPLAINTS. CALL MATTHEW WITHIN REACH.
--- NOTE | 2018-07-12 10:30 | NUR ---
dr. thompson at the bedside for assessment and to discuss plan of care, pt again stated she was not stayING and she wanted dr. thompson to discharge her. dr thompson stated he was not able to do that with her being in the condition she was in [facility]. pt then demand this nurse to get the paper for her to sign to leave ama and for me to call her SON Danie to come get her and bring her o2 tank. Pt grandson/POA arrived on unit and was updated as to pt status and risk of pending ama. Grandson also expressed concerns of pt leaving, Pt stated she did not care, "i AM LEAVING NOW, TAKE ALL THIS STUFF OFF OF ME!"
--- NOTE | 2018-07-12 10:35 | NUR ---
IV site TO LAC & RAC discontinued, cath intact. No edema , no redness, voices no discomfort.
--- NOTE | 2018-07-12 10:53 | NUR ---
IN TO SEE PT. PLAN OF CARE DISCUSSED. CALL MATTHEW WITHIN REACH.
--- NOTE | 2018-07-12 11:30 | NUR ---
Patient decides to leave AMA. Multiple attempts made to encourage patient to remain here for continued treatment. Explained to patient all risks of leaving against medical advice including . Pt verbalized understanding of all risks. Pt also encouraged to return to [facility] at any time, especially if symptoms continue or become worse. Pt & FAMILY verbalized understanding.
== END 2018-07-12 11:30 | disposition left against medical advice (07) | DRG 291 ==
LOC: ED 16:28 → ED-I 17:50 → ED 18:11 → ICU 18:12
PROVIDERS: Emergency Medicine; ADMIT Internal Medicine; ATTEND Internal Medicine
PROC: 5A09357 Assistance with Respiratory Ventilation, Less than 24 Consecutive Hours, Continuous Positive Airway Pressure (ICD-10-PCS; principal; 2018-07-11)
DX: I11.0 Hypertensive heart disease with heart failure (principal); J18.9 Pneumonia, unspecified organism; J44.1 Chronic obstructive pulmonary disease with (acute) exacerbation; J44.0 Chronic obstructive pulmonary disease with (acute) lower respiratory infection; I50.9 Heart failure, unspecified; I71.4 Abdominal aortic aneurysm, without rupture; F17.210 Nicotine dependence, cigarettes, uncomplicated; I25.10 Atherosclerotic heart disease of native coronary artery without angina pectoris; E78.5 Hyperlipidemia, unspecified; G89.29 Other chronic pain; K21.9 Gastro-esophageal reflux disease without esophagitis; F41.1 Generalized anxiety disorder; F32.9 Major depressive disorder, single episode, unspecified; Z99.81 Dependence on supplemental oxygen
CPT/HCPCS: J0131; J3475

== ENCOUNTER 2018-09-20 17:30 | Inpatient (IN) | payer MEDICARE, MEDICAID ==
[~2018-09-20] VITALS: Ht 157.5 cm; Wt 77.8 kg
--- NOTE | 2018-09-20 17:30 | NUR ---
PATIENT TO ROOM VIA WHEELCHAIR, ON HOME O2 AT 2L/MIN VIA NASAL CANNULA. ASSISTED ONTO STRETCHER X2 STAFF ASSIST. RT PAGED.
--- NOTE | 2018-09-20 17:51 | NUR ---
3 DAYS SEVERE SOB, DENIES ANY C/P, N/V OR WEAKNESS. ON HOME O2 AT 2LPM. PT IS AOX4
--- NOTE | 2018-09-20 18:23 | NUR ---
PT B/P DECREASED TO 76/44, PT AOX4. MD NOTIFIED.
[2018-09-20 18:33] LABS: HEMATOCRIT 32.9 % (37.0-47.0); HEMOGLOBIN 10.5 g/dl (12.0-16.0); IMMATURE GRANULOCYTES 0.5 % (0.0-5.0); MEAN CELL VOLUME 93.5 fL CALC (80.0-100.0); MEAN CORPUSCULAR HGB 29.8 pG CALC (26.0-32.0); MEAN CORPUSCULAR HGB CONC 31.9 g/L CALC (32.0-36.0); NEUT# 14.28 thou/uL (2.00-7.15); RED BLOOD COUNT 3.52 mill/uL (4.20-5.60); RED CELL DISTRI WIDTH 15.4 % (11.5-15.5)
[2018-09-20 18:44] LABS: ALBUMIN 3.9 g/dL (3.2-5.0); BILIRUBIN, TOTAL 1.2 mg/dL (0.0-1.4); TOTAL PROTEIN 7.2 g/dL (6.3-8.2)
[2018-09-20 18:45] LABS: CREATININE 2.3 mg/dL (0.5-1.0)
--- NOTE | 2018-09-20 19:00 | NUR ---
BP TRENDING UPWARD.
--- NOTE | 2018-09-20 19:59 | NUR ---
BIPAP REMOVED, PT PLACED ON NASAL CANNULA. PT B/P DROPPED. MD NOTIFIED, MD STATES TO GIVE ADDITONAL 500 ML OF FLUID BOLUS.
--- NOTE | 2018-09-20 20:01 | NUR ---
BIPAP CONTINUED BY RT
--- NOTE | 2018-09-20 20:36 | NUR ---
REPORT CALLED TO LISA- MARCELA AKBAR ACCEPTED PT.
--- NOTE | 2018-09-20 20:50 | NUR ---
Admission Note Report Given to: MARCELA AKBAR Transported by: Wheelchair X Stretcher Transported with: X Nurse X Transporter X Patent IV X O2 X Orthopedic Shoes Salesperson TRANSPORTED TO ICU 1 WITH BIPAP. PTS O2 CONCENTRATOR AND PURSE IN BELONGING BAG WITH PT
--- NOTE | 2018-09-20 20:55 | NUR ---
PT. ARRIVES FROM ER VIA STRETCHER TO ICU BED. PT. IMMEDIATELY UPON ARRIVAL YELLING TO HAVE BIPAP MASK REMOVED. PT. ASKED TO MOVE HERSELF OVER IN BED, BUT STATES SHE WAS UNABLE TO BECAUSE IT WOULD MAKE HER TOO SOB. PT. MOVED VIA 4 PERSON TRANSFER WITHOUT ANY ASSISTANCE FROM PATIENT. AWAKE, ALERT, ORIENTED ON ARRIVAL. UNCOOPERATIVE. PT. VERY UNKEMPT. FINGERNAILS VERY LONG AND VERY DIRTY. HARSH, WHEEZY COUGH NOTED. NO SPUTUM PRODUCTION. PUREWICK IN PLACE AT THIS TIME. PT. DENIES PAIN. BOWEL SOUNDS PRESENT. NO EDEMA NOTED. HARSH, COARSE LUNG SOUNDS THROUGHOUT. MILD DYSNPEA NOTED.
[2018-09-20 21:00] VITALS: BP 115/52
--- NOTE | 2018-09-20 21:05 | NUR ---
PT. PLACED ON 3L HIGH FLOW HUMIDIFIED O2 VIA NASAL CANNULA. PT. REMAINS WITH MILD-MOD SOB. WILL CONTINUE TO ASSESS, BUT IS REFUSING TO WEAR THE BIPAP AT THIS TIME. UNABLE TO OBTAIN GOOD WAVEFORM AND PLETH ON THE SPO2. ON ARRIVAL PT. WAS 100% ON THE BIPAP VIA R/T PORTABLE PULSE OX.
[2018-09-20 21:15] VITALS: BP 94/44
[2018-09-20 21:30] VITALS: BP 99/46
[2018-09-20 22:00] VITALS: BP 78/34
--- NOTE | 2018-09-20 22:00 | NUR ---
PT. NOW AGAIN HYPOTENSIVE. 78/40. MADE AWARE, NEW ORDERS RECEIVED FOR FLUID BOLUS ADMINISTRATION. PT. REMAINS STABLE. SLEEPING AT THIS TIME. HR IRREGULAR, BUT SINUS IN THE 90-110'S. VOICES NO COMPLAINTS OR NEEDS. NO RESP DISTRESS NOTED. SPO2 IS 93-94% ON HI-FLOW NASAL CANNULA. CONTINUES TO REFUSE BIPAP.
[2018-09-20 22:30] VITALS: BP 99/47
[2018-09-20 23:00] VITALS: BP 91/38
--- NOTE | 2018-09-20 23:11 | NUR ---
IV FLUIDS INFUSING ORDERED. BP SLIGHTLY IMPROVED. WILL CONTINUE TO MONITOR.
[2018-09-21] VITALS (15 sets, daily range): BP systolic 93–125; BP diastolic 38–99
--- NOTE | 2018-09-21 00:45 | NUR ---
R/T CALLED TO PLACE PATIENT ON VENTI-MASK PT. IS MAINLY MOUTH BREATHING WHILE SLEEPING. PT. SPO2 DECREASED TO THE 60'S. UNLABORED AT THIS TIME HOWEVER. HR STABLE IN THE 90-100'S. WILL CONTINUE TO MONITOR.
--- NOTE | 2018-09-21 00:59 | NUR ---
PT. PLACED ON VENTI-MASK AT THIS TIME. WILL CONTINUE TO MONITOR.
--- NOTE | 2018-09-21 01:15 | NUR ---
PT. REQUESTING FOOD AND FLUIDS AT THIS TIME. ENCOURAGED TO KEEP VENTI-MASK IN PLACE AT THIS TIME. REFUSES, PROVIDED WITH TURKEY SANDWICH AND COLA BEVERAGE. PT. REFUSED WATER.
--- NOTE | 2018-09-21 02:45 | NUR ---
PT. RESTING IN BED WITH VENTI MASK IN PLACE. HR STABLE IN THE 90'S, IRREGULAR. SPO2 91% ON VENTI-MASK. BP STABLE. CALL LIGHT REMAINS WITHIN REACH. WILL CONTINUE TO MONITOR.
--- NOTE | 2018-09-21 04:15 | NUR ---
PT. RESTING IN BED WITH EYES CLOSED IN NO DISTRESS. REMAINS ON VENTI-MASK AT 40%. BP/HR STABLE. SPO2 IN THE LOW 90'S.
--- NOTE | 2018-09-21 05:30 | NUR ---
LAB AT BEDSIDE AT THIS TIME.
--- NOTE | 2018-09-21 05:40 | NUR ---
R/T AT BEDSIDE TO ADMINISTER NEB TREATMENT. PT. REMAINS STABLE ON THE VENTI-MASK. BP/HR STABLE. CALL LIGHT REMANIS WITHIN REACH.
[2018-09-21 05:51] LABS: HEMATOCRIT 29.9 % (37.0-47.0); HEMOGLOBIN 9.8 g/dl (12.0-16.0); IMMATURE GRANULOCYTES 0.4 % (0.0-5.0); MEAN CELL VOLUME 92.3 fL CALC (80.0-100.0); MEAN CORPUSCULAR HGB 30.2 pG CALC (26.0-32.0); MEAN CORPUSCULAR HGB CONC 32.8 g/L CALC (32.0-36.0); NEUT# 6.5 thou/uL (2.00-7.15); RED BLOOD COUNT 3.24 mill/uL (4.20-5.60); RED CELL DISTRI WIDTH 15.1 % (11.5-15.5)
[2018-09-21 06:00] LABS: BILIRUBIN, TOTAL 0.5 mg/dL (0.0-1.4); CREATININE 2.1 mg/dL (0.5-1.0); POTASSIUM 4.1 mmol/l (3.5-5.1)
[2018-09-21 06:01] LABS: ALBUMIN 2.9 g/dL (3.2-5.0); TOTAL PROTEIN 5.3 g/dL (6.3-8.2)
--- NOTE | 2018-09-21 06:18 | NUR ---
PT. PROVIDED WITH CUP OF ICE PER HER REQUEST. DENIES OTHER COMPLAINTS OR NEEDS. VENTI MASK REMAINS IN PLACE. SITTING UP IN BED WATCHING TELEVISION. WILL CONTINUE TO MONITOR.
--- NOTE | 2018-09-21 06:50 | NUR ---
RECVD REPORT FROM RAFFY MEDRANO AT START OF SHIFT.
--- NOTE | 2018-09-21 07:40 | NUR ---
PT REQUESTED PITCHER OF SWEET ICED TEA. PT STATES THATS HER PITCHER NOW AND SHES TAKING IT HOME.
--- NOTE | 2018-09-21 09:11 | NUR ---
RT @BEDSIDE FOR BREATHING TREATMENT.
--- NOTE | 2018-09-21 09:56 | NUR ---
DR COOPER @BEDSIDE DISCUSSING TEST RESULTS & POC WITH PT. SPUTUM COLLECTED.
--- NOTE | 2018-09-21 10:14 | NUR ---
PT ON UNIT CORDLESS PHONE TO TALK TO FAMILY AND GIVE THEM CODE. PT VISIBLY LABORED BREATHING WHEN TALKING.
--- NOTE | 2018-09-21 11:24 | NUR ---
MALE VISITOR @BEDSIDE.
--- NOTE | 2018-09-21 11:32 | NUR ---
PT YELLING FROM ROOM, WANTING TO KNOW WHY SHE CANT HAVE MCDONALDS. PT EDUCATED ON LOW SALT DIET.
--- NOTE | 2018-09-21 11:37 | NUR ---
PT SITTING UP IN BED, EATING LUNCH.
--- NOTE | 2018-09-21 12:19 | NUR ---
PT ADJUSTED BED 30degrees. ATE 100% OF LUNCH.
--- NOTE | 2018-09-21 12:43 | NUR ---
PT REQUESTS ROPIRINOL FOR RLS. EXPLAINED MED PROFILED PRN QHS. PT STATES HER BOTTLE AT HOME SAYS NEEDED & SHE NEEDS IT NOW BC SHE IS TRYING TO SLEEP. TRYING TO CONTACT DR COOPER.
--- NOTE | 2018-09-21 13:04 | NUR ---
RT @BEDSIDE FOR BREATHING TREATMENT.
--- NOTE | 2018-09-21 13:22 | NUR ---
pt oob to chair at bedside with on e mod assist, tolerated activity well with exertional dyspnea noted.
--- NOTE | 2018-09-21 13:34 | NUR ---
family members at bedside, call samayoa within reach
--- NOTE | 2018-09-21 13:49 | NUR ---
2 VISITORS W/BABY @BEDSIDE. PT ASSISTED TO CHAIR. NO COMPLAINTS/NEEDS AT THIS TIME.
--- NOTE | 2018-09-21 14:11 | NUR ---
PUREWICK REPLACED. FAMILY STILL @BEDSIDE. PT ABLE TO CONVERSE WITHOUT DYSPNEA. 3.5L HUMIDIFIED NC IN PLACE.
--- NOTE | 2018-09-21 14:27 | NUR ---
PTS PULSE CHANGED, OBTAINING BETTER PLETH. O2 89-91% AT THIS TIME. PT STATES HER GRANDSON IS BRINGING HER HER ROPIRINOL. I TOLD HER THAT IS NOT ALLOWED. PT REPLIED "WELL, I WONT TELL ANYONE & YOU WONT TELL ANYONE".
--- NOTE | 2018-09-21 14:40 | NUR ---
FRIENDS @BEDSIDE. PT YELLING OUT FOR STAFF TO COME TO ROOM BC SHE COULDNT FIND HER CALLBELL SITTING RIGHT NEXT TO HER & WANTED ANOTHER BLANKET.
--- NOTE | 2018-09-21 14:58 | NUR ---
PT FREQUENTLY ON CALLBELL, OFTEN BEFORE I CAN GET BACK TO MY SEAT FROM THE LAST CALLBELL.
--- NOTE | 2018-09-21 15:28 | NUR ---
REARRANGED PTS DRINKS HOW SHE REQUESTED. SPECIFICALLY. [id number].
--- NOTE | 2018-09-21 15:37 | NUR ---
PT ON CALLBELL FOR PORTABLE PHONE
--- NOTE | 2018-09-21 15:49 | NUR ---
PT ON CALLBELL AGAIN. ASKING FOR THAT MEDICINE I OFFERED HER A WHILE AGO THAT SHE SAID SHE DIDNT WANT. WILL ASK DR COOPER FOR SOMETHING FOR ANXIETY.
--- NOTE | 2018-09-21 15:50 | NUR ---
PT ON CALLBELL AGAIN, ASKING US TO MAKE CALL FOR HER.
--- NOTE | 2018-09-21 15:51 | NUR ---
PT ON CALLBELL AGAIN BC SHE DROPPED THE PHONE AND HUNG IT UP.
--- NOTE | 2018-09-21 15:58 | NUR ---
kat from dr thompson for 1mg ropinirole po now. order faxed to [facility].
--- NOTE | 2018-09-21 16:21 | NUR ---
PTS GRANDSON & HIS W/2 CHILDREN @BEDSIDE. LITTLE BOY ASKED NOT TO PLAY WITH IV PUMP.
--- NOTE | 2018-09-21 16:26 | NUR ---
PT & FAMILY OVERHEAD HAVING A VERBAL ARGUMENT. PT TELLING HER GRANDCHILDREN THAT THEY NEED TO TAKE BETTER CARE OF HER BC IF SHE WAITED 2 MORE DAYS, SHE'D BE . GRANDCHILDREN TELL PT THEY AREN'T DRS OR NURSES AND THEY WOULD'VE DONE SOMETHING IF SHE TOLD THEM SOONER.
--- NOTE | 2018-09-21 16:28 | NUR ---
PT ON CALLBELL AGAIN, ASKING "WHAT'S WRONG WITH HER".
--- NOTE | 2018-09-21 16:39 | NUR ---
NOTICED PTS HR ELEVATING. REQUESTED REPEAT EKG. HAD TO OBTAIN MULTIPLE EKGS TO GET A GOOD READING. EKG STATES SINUS TACH. PTS HR IN THE 140'S-150'S.
--- NOTE | 2018-09-21 16:42 | NUR ---
DR COOPER CALLED BACK, WILL REVIEW EKG. PTS HR BOUNCING FROM 130'S-160'S.
--- NOTE | 2018-09-21 16:49 | NUR ---
PT DENIES SYMPTOMS OF TACHYCARDIA. VISITORS ASKED TO WAIT IN WAITING ROOM BUT PT STILL ARGUING WITH GRANDSON ABOUT WETHER OR NOT HE TOOK OUT THE TRASH TODAY, EVENTOUGH ALL FAMILY IS STILL IN WAITING ROOM.
--- NOTE | 2018-09-21 16:59 | NUR ---
DR COOPER ON UNIT
--- NOTE | 2018-09-21 17:02 | NUR ---
DR COOPER @BEDSIDE.
--- NOTE | 2018-09-21 17:06 | NUR ---
GAVE VERBAL ORDERS FOR STAT ABG & VENTI MASK.
--- NOTE | 2018-09-21 17:10 | NUR ---
RT @BEDSIDE FOR ABG. FAMILY UPDATED ON PTS STATUS.
--- NOTE | 2018-09-21 17:29 | NUR ---
RT PLACED PT BACK ON BIPAP. LAB AWARE OF STAT LAB DRAW. FAMILY WENT HOME. DINNER HELD.
--- NOTE | 2018-09-21 17:37 | NUR ---
NEB TX NOT GIVEN DUE TO INCREASED HR.
--- NOTE | 2018-09-21 17:37 | NUR ---
LAB @BEDSIDE FOR BLOOD DRAW. PT CONTINUES TO USE CALLBELL FREQUENTLY. PT TALKING OVER THE BIPAP.
--- NOTE | 2018-09-21 17:40 | NUR ---
FAMILY BROUGHT PTS ROPIRINOL FROM HOME. 3 PILLS IN A ZIPLOCK BAG PLACED IN PTS BOOT IN HER BELONGINGS BAG.
--- NOTE | 2018-09-21 17:42 | NUR ---
PT ON SUSHIL AGAIN, STATING "I NEED THAT TABLE OVER HERE". ALSO STATED "TURN THAT LIGHT OFF".
[2018-09-21 17:43] LABS: HEMATOCRIT 26.9 % (37.0-47.0); HEMOGLOBIN 8.5 g/dl (12.0-16.0); IMMATURE GRANULOCYTES 0.7 % (0.0-5.0); MEAN CELL VOLUME 93.7 fL CALC (80.0-100.0); MEAN CORPUSCULAR HGB 29.6 pG CALC (26.0-32.0); MEAN CORPUSCULAR HGB CONC 31.6 g/L CALC (32.0-36.0); NEUT# 6.46 thou/uL (2.00-7.15); RED BLOOD COUNT 2.87 mill/uL (4.20-5.60)
--- NOTE | 2018-09-21 17:58 | NUR ---
PT UNWILLING TO STRAIGHTEN ARM TO TROUBLE SHOOT WHY IV ABX STATES DOWNWARD OCCLUSION. WILL TRY AGAIN LATER.
--- NOTE | 2018-09-21 19:00 | NUR ---
BEDSIDE REPORT RECEIVED FROM RAFFY BUITRAGO. PT RESTING IN BED SEMI FOWLERS WITH BIPAP IN PLACE. ALERT AND ORIENTED. C/O OF DISCOMFORT FROM FACE MASK AND MILD CHRONIC LOWER BACK PAIN. RESPIRATIONS EVEN WITH BIPAP ON. HEART RATE ELEVATED IN THE 130'S AND 140'S. PT REQUESTING TO REMOVE BIPAP BECAUSE HER MOUTH IS DRY. NURSE ENCOURAGED PT TO LEAVE MASK IN PLACE WHILE HR IS ELEVATED AND RT CHECKS ON HER. PT STATES, "WELL IF THEY DON'T TAKE IF OFF ILL TAKE IF OFF. WE CAN DO THIS THE NICE WAY OR THE MEAN WAY." PLAN OF CARE REVIEWED. PT ENCOURAGED TO VERABLIZE CONCERNS. STATES UNDERSTANDING. SAFETY PRECAUTIONS REINFORCED. CALL LIGHT WITHIN REACH.
--- NOTE | 2018-09-21 20:11 | NUR ---
HEART RATE CONTINUES IN THE 130S - 140S. DR. PACHECO NOTIFIED AND NEW ORDER RECEIVED FOR A ONE TIME BOLUS OF AMIODARONE. BOTH IV SITES OCCLUDED; NEW SITE STARTED TO RFA THAT FLUSHES WELL AND APPEARS HEALTHY.
--- NOTE | 2018-09-21 20:13 | NUR ---
UPON ENTERING ROOM PT OBSERVED PULLING FACE MASK TO THE SIDE AND DRINKING HER TEA AND REPLACING THE FACE MASK. PT EDUCATED ON RISK OF ASPIRATION AND OTHER COMPLICATIONS FROM DRINKING WITH BIPAP IN PLACE. PT STATES, "WHAT'S WORSE THAN BILATERAL PNEUMONIA? I'LL HAVE MY GRANDSON COME GET ME AND TAKE ME HOME. I DON'T NEED ALL THIS."
--- NOTE | 2018-09-21 21:49 | NUR ---
AMIODARONE AND HS MEDICATIONS GIVEN. BIPAP REMOVED WHILE PT WAS ASSISTED TO BSC FOR SMALL BOWEL; NC ON DURING THIS TIME AT 3.5 HUMIDIFIED O2. PURWIK DID NOT CONTAIN ALL URINE; ALL LINENS CHANGED AND ASSISTED BATH GIVEN AND DENTURE CARE. ASSISTED BACK INTO BED AND NEW PURWIK APPLIED. SNACK AND DRINK GIVEN PER PT DEMAND. BIPAP NOW ON AND PT HAS NO FURTHER REQUESTS OR CONCERNS. PT STATES, "TURN THE LIGHT OFF AND I WILL GO TO SLEEP." HEART RATE CURRENTLY 119 SINUS TACH.
--- NOTE | 2018-09-21 22:27 | NUR ---
PT RESTING QUIETLY IN BED WITH BIPAP STILL ON AT 40% FIO2 AND EYES CLOSED; RESPIRATIONS ARE MORE EVEN AND UNLABORED; OXYGEN SATURATION 98%. HEART RATE BETWEEN 110S AND 120S.
--- NOTE | 2018-09-21 23:00 | NUR ---
FRACISCO HELD FOR ELEVATED HEART RATE.
[2018-09-22] VITALS (24 sets, daily range): BP systolic 92–159; BP diastolic 57–91
--- NOTE | 2018-09-22 00:10 | NUR ---
PT ASLEEP AT THIS TIME WITH NO SIGNS OF DISTRESS. RESPIRATIONS EVEN AND UNLABORED ON BIPAP. IV SITE APPEARS HEALTHY AND FLUSHES. HEART RATE REMAINS ELEVATED IN THE 120S AND 130S. PURWIK IN PLACE. SAFETY MEASURES IN PLACE. CALL LIGHT WITHIN REACH.
--- NOTE | 2018-09-22 00:21 | NUR ---
PT WOKE UP ANXIOUS; DEMANDING BIPAP BE REMOVED AND STATES SHE NEEDS TO REPOSITION DUE TO HER BACK PAIN COMING BACK. BIPAP REMOVED FOR NOW; CURRENTLY 86% ON 4L OF OXYGEN VIA NC. PT TURNED SELF ONTO RIGHT SIDE AND POSITIONED WITH PILLOWS. REQUESTING PAIN MEDICATION; TRAMADOL GIVEN AT HS WITH GOOD EFFECT FOR PAIN. UNABLE TO GIVE ANOTHER DOSE AT THIS TIME. WARM COMPRESS APPLIED TO SACRUM. WILL REASSESS.
--- NOTE | 2018-09-22 01:43 | NUR ---
OXYGEN SATURATION DROPPED LOW 71% ON NC WHILE ASLEEP. PT ALLOWED NURSE TO REAPPLY BIPAP. CURRENTLY 93%.
--- NOTE | 2018-09-22 04:01 | NUR ---
PT RESTING QUIETLY WITH BIPAP IN PLACE; READJUSTED FOR COMFORT. NO REQUESTS OR CONCERNS AT THIS TIME. DOES NOT REPORT PAIN. HEART RATE REMAINS ELEVATED AND AFIB ON TELE.
[2018-09-22 05:07] LABS: HEMATOCRIT 27.9 % (37.0-47.0); IMMATURE GRANULOCYTES 1.4 % (0.0-5.0); MEAN CELL VOLUME 93.6 fL CALC (80.0-100.0); MEAN CORPUSCULAR HGB 30.2 pG CALC (26.0-32.0); MEAN CORPUSCULAR HGB CONC 32.3 g/L CALC (32.0-36.0); NEUT# 7.4 thou/uL (2.00-7.15); RED BLOOD COUNT 2.98 mill/uL (4.20-5.60); RED CELL DISTRI WIDTH 15.2 % (11.5-15.5)
--- NOTE | 2018-09-22 05:25 | NUR ---
PT TRANSPORTED TO RADIOLOGY VIA WHEELCHAIR WITH ICU NURSE ON OXYGEN VIA NC; PT TOLERATED WELL. ASSISTED BACK TO BED AND BIPAP REPLACED. OXYGEN SATURATION CURRENTLY 96%. EMPTIED 300ML OF CLOUDY YELLOW URINE FROM PURWIK CONTAINER AND REPLACED PURWIK. RT AT BEDSIDE.
[2018-09-22 05:55] LABS: ALBUMIN 2.9 g/dL (3.2-5.0); ALKALINE PHOSPHATASE 84 u/l (38-126); AMYLASE < 30 u/l (30-110); ANION GAP 16 (6-22 (CALC)); BILIRUBIN, TOTAL 0.4 mg/dL (0.0-1.4); BUN 54 mg/dL (8-23); BUN/CREATININE RATIO 28 (12-20 (CALC)); CARBON DIOXIDE 26 mmol/l (22-30); CHLORIDE 96 mmol/l (95-108); CREATININE 1.9 mg/dL (0.5-1.0); GFR 25 ML/MIN (>=60 (CALC)); GFR FOR AFR.AMER. 31 ML/MIN (>=60 (CALC)); LIPASE 11 u/l (23-300); MAGNESIUM 2.1 mg/dL (1.6-2.3); SGOT/AST 28 u/l (9-36); SODIUM 134 mmol/l (137-146); TOTAL PROTEIN 5.4 g/dL (6.3-8.2)
--- NOTE | 2018-09-22 06:17 | NUR ---
PT ASKING IF BIPAP MASK CAN BE REMOVED; NURSE REQUESTED THAT SHE LEAVE IT ON UNTIL BREAKFAST AND PT STATES, "I'LL TRY." RESTING IN SEMI FOWLERS WATCHING TV. CALL LIGHT WITHIN REACH.
--- NOTE | 2018-09-22 06:39 | NUR ---
BIPAP PLACED STANDBY. PT. ON 3L NC.
--- NOTE | 2018-09-22 07:06 | NUR ---
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
--- NOTE | 2018-09-22 07:20 | NUR ---
ice chips provided as per request; pt very demanding; dietary notified of pt specific request for "chocolate milk with hot chocolate" and non decaf tea; will continue to monitor
--- NOTE | 2018-09-22 07:25 | NUR ---
pt noted coughing; hr up to 150-160s with coughing
--- NOTE | 2018-09-22 08:01 | NUR ---
awake in bed; resp labored; o2 per nc; slow deep breathing strongly encouraged; prod cough noted; thick green sputum noted; afib 123 on monitor; purewick catheter intact; pt deny needs; call light within reach; will continue to monitor
--- NOTE | 2018-09-22 08:23 | NUR ---
pt noted with increased sob; o2 sat 70s; afib 130s on monitor; breakfast removed/held; am meds administered; RT at bedside; bipap reapplied with settings of 12/6, rate 14, fiO2 40%; o2 sat immed up to 90%-93%; will continue to monitor
--- NOTE | 2018-09-22 09:01 | NUR ---
pt resting with eyes closed; afib 120s on monitor; iv intact; bipap maintained with 40% FiO2; will continue to monitor
--- NOTE | 2018-09-22 09:18 | NUR ---
Dr Hayes present at bedside to assess pt and discuss plan of care; spoke with pt in great detail about code status; pt request for everything to be done to bring her back; pt remains full code; will continue to monitor
--- NOTE | 2018-09-22 09:55 | NUR ---
DUONEB NOT GIVEN DUE TO INCREASED HR.
--- NOTE | 2018-09-22 10:00 | NUR ---
awake in bed; koenig catheter explained; pt agree with plan of care; 16Fr koenig catheter inserted x1 attempt using sterile technique; immed return of clear dk yellow urine totaling 450cc; cath rose device applied to left upper inner thigh; iv intact; bipap maintained with 40% FiO2; afib 115 on monitor; call light within reach; will continue to monitor
--- NOTE | 2018-09-22 10:50 | NUR ---
awake in bed; visitor present at bedside; pt requesting bipap to be removed; plan of care explained to pt and visitor/ MD orders for bipap to remain on the rest of day; po fluids provided; pt demands "bring me something to eat, I'm hungry"; lunch schedule explained in addition to MD orders; will continue to monitor
--- NOTE | 2018-09-22 11:35 | NUR ---
pt converted to 3L nc; bipap o standyby; lunch provided as per pt request
--- NOTE | 2018-09-22 11:35 | NUR ---
CELINA WEBSTER. PT ON 3L NC FOR LUNCH.
--- NOTE | 2018-09-22 12:00 | NUR ---
awake in bed; no apparent distress noted; pt offers no complaints; iv intact; afib 100 on monitor; koenig to gravity; information technology specialist present at bedside; bipap reapplied with 40% FiO2; call light within reach; will continue to monitor
--- NOTE | 2018-09-22 14:22 | NUR ---
resting in bed with eyes closed; easily aroused; offers no complaints; afib on monitor; koenig to gravity; bipap intact and maintained with 40% FiO2; o2 sat 97%; call light within reach; will continue to monitor
--- NOTE | 2018-09-22 16:09 | NUR ---
awake in bed; offers no complaints; no apparent distress noted; resp labored; iv intact; no redness or edema noted at site; koenig to gravity; afib on monitor; repositioned for comfort; bipap maintained; call light within reach; will continue to monitor
--- NOTE | 2018-09-22 16:26 | NUR ---
pt demanding bipap be removed; plan of care/ keeping bipap on per MD orders explained; pt very argumentive about bipap; bipap removed; o2 per nc at 3L placed; will continue to monitor
--- NOTE | 2018-09-22 16:45 | NUR ---
CELINA STANDBY. PT. ON 3 NC
--- NOTE | 2018-09-22 18:01 | NUR ---
awake in bed eating dinner; admits to pain relief; rates pain as 5/10; koenig to gravity; iv flushed and patent; abt infusing without complication; no redness or edema noted at site; afib on monitor; repositioned; o2 per nc; call light within reach
--- NOTE | 2018-09-22 19:00 | NUR ---
awakens easily. no acute resp distress. o2 cont per nc. cardiac cath lab radiology technologist shows sinus tach pacs pvcs. #22 rfa saline lock. po fluids taken fair. koenig cath in place. urine clear yellow. fall precautions cont.
--- NOTE | 2018-09-22 21:00 | NUR ---
awakens easily. restoril 15mg po & robitussin 10cc po given for sleep & cough. desats to 73% when drinking tea. requests to "take a break" from bipap. request denied. instructed pt about physican order to wear @ night. pt admits "i'm not ready to go to bed." told pt she has been asleep since this short story writer came on shift. bipap resumed.
--- NOTE | 2018-09-22 23:00 | NUR ---
call samayoa pushed. drink of tea given per request. sao2 dropped to 72%. pt requested to "take a break for a while." request denied. instructed pt about sao2. bipap resumed.
[2018-09-23] VITALS (20 sets, daily range): BP systolic 102–169; BP diastolic 59–94
--- NOTE | 2018-09-23 00:01 | NUR ---
eyes closed. no distress. cafeteria monitor shows sinus rhythm pacs pvcs.
--- NOTE | 2018-09-23 02:00 | NUR ---
resting quietly. hob remains in high fowlers position. bipap conts.
--- NOTE | 2018-09-23 04:45 | NUR ---
lab here. blood drawn.
[2018-09-23 05:52] LABS: HEMATOCRIT 30.2 % (37.0-47.0); HEMOGLOBIN 9.6 g/dl (12.0-16.0); IMMATURE GRANULOCYTES 4.9 % (0.0-5.0); MEAN CELL VOLUME 95.6 fL CALC (80.0-100.0); MEAN CORPUSCULAR HGB 30.4 pG CALC (26.0-32.0); MEAN CORPUSCULAR HGB CONC 31.8 g/L CALC (32.0-36.0); NEUT# 6.56 thou/uL (2.00-7.15); RED BLOOD COUNT 3.16 mill/uL (4.20-5.60); RED CELL DISTRI WIDTH 14.8 % (11.5-15.5)
--- NOTE | 2018-09-23 06:00 | NUR ---
awakens easily. no distress. bipap cont.
--- NOTE | 2018-09-23 07:20 | NUR ---
awake in bed; no apparent distress noted; assessment completed at this time; pt alert and oriented; denies pain; no n/v noted; resp even and unlabored; lungs coarse with wheezing throughout; skin color wnl; bipap intact with FiO2 of 35%; prod cough noted; hr reg; strong pulses; trace pedal edema noted; sr pac/pvc on monitor; abd soft with bs present; no bm noted per typewriter operator automatic; koenig to gravity draining clear yellow urine; cath rose device in place; #22 to rfa flushed and patent; no redness or edema noted; plan of care/ am meds explained; call light within reach; will continue to monitor
--- NOTE | 2018-09-23 07:40 | NUR ---
pt demanding bipap be removed; converted to 3L nc; assist to chair for breakfast; koenig to gravity
--- NOTE | 2018-09-23 08:02 | NUR ---
awake; offers no complaints; o2 per nc at 3L; st pac/pvc on monitor; koenig to gravity; remains iup to chair; call light within reach; will continue to monitor
[2018-09-23 08:15] LABS: ALBUMIN 3.2 g/dL (3.2-5.0); BILIRUBIN, TOTAL 0.4 mg/dL (0.0-1.4); CREATININE 1.8 mg/dL (0.5-1.0); MAGNESIUM 2.1 mg/dL (1.6-2.3); POTASSIUM 4.4 mmol/l (3.5-5.1); TOTAL PROTEIN 5.7 g/dL (6.3-8.2)
--- NOTE | 2018-09-23 10:05 | NUR ---
awake in recliner; no apparent distress noted; resp labored; st pac/pvc on monitor; o2 per nc; koenig to gravity; pt bath self and brushed dentures; ice provided for tea; call light within reach; will continue to monitor
--- NOTE | 2018-09-23 10:12 | NUR ---
Dr Hayes present at bedside to assess pt and discuss plan of care; spoke with pt in great detail about Hospice; pt agree to have consult; will continue to monitor
--- NOTE | 2018-09-23 10:30 | NUR ---
Hospice consult called to [facility] at [phone]; information provided; order and facesheet to be faxed as per request to [phone]
--- NOTE | 2018-09-23 10:38 | NUR ---
facesheet and hospice consult order faxed to [phone]; confirmation received
--- NOTE | 2018-09-23 11:12 | NUR ---
Mari Loyola called this mortgage loan underwriter; report given; per Milla, Hospice nurse is on her way; ETA 1-1.5 hrs
--- NOTE | 2018-09-23 11:51 | NUR ---
awake in bed; o2 per nc; st pac/pvc on monitor; koenig to gravity; visitor x2 at bedside; call light within reach; will continue to monitor
--- NOTE | 2018-09-23 13:10 | NUR ---
hospice nurse present at bedside
--- NOTE | 2018-09-23 14:00 | NUR ---
Dr Hayes present on unit to speak with Hospice nurse Mila; discharge with home hospice to be held until pt more stable per MD/ possible Mon
--- NOTE | 2018-09-23 14:15 | NUR ---
awake in chair; assisted back to bed; o2 per nc; o2 sat 95%; koenig to gravity; iv intact; sr pac/pvc on monitor; call light within reach; will continue to monitor
--- NOTE | 2018-09-23 16:00 | NUR ---
resting in bed with eyes closed; easily aroused; offers no complaints; iv intact; sr pac/pvc on monitor; o2 per nc; koenig to gravity; deny needs; call light within reach; will continue to monitor
--- NOTE | 2018-09-23 18:07 | NUR ---
resting in bed with eyes closed; no apparent distress noted; resp unlabored at this time; sr pac/pvc on monitor; koenig to gravity; iv patent; abt infusing without complication; o2 per nc hi-flow; o2 sat 98%; dinner tray left at bedside; call light within reach
--- NOTE | 2018-09-23 19:10 | NUR ---
awake. watching tv. remains in high fowlers position. denies resp diff. o2 cont per high flow. wheezing bilat with diminished breath sounds bibas. pt admits prod cough of green sputum. monitoring analyst shows sinus rhythm pacs pvcs. #22 lt hand saline lock. po fluids taken well. koenig cath in place. urine clear yellow. fall precautions cont.
--- NOTE | 2018-09-23 21:00 | NUR ---
restoril 15mg & robitussin 10cc po given for sleep & cough.
--- NOTE | 2018-09-23 22:00 | NUR ---
eyes closed. bipap on. no distress. koenig draining well.
[2018-09-24] VITALS (22 sets, daily range): BP systolic 116–182; BP diastolic 65–87
--- NOTE | 2018-09-24 00:01 | NUR ---
eyes closed. no distress. cafeteria monitor shows sinus rhythm pacs pvcs.
--- NOTE | 2018-09-24 02:00 | NUR ---
resting quietly. resp unlabored. bipap cont.
--- NOTE | 2018-09-24 04:00 | NUR ---
eyes closed. no distress. hob almost flat tonite. bipap cont.
--- NOTE | 2018-09-24 04:15 | NUR ---
lab here. blood drawn.
[2018-09-24 05:08] LABS: CHOLESTEROL HDL RATIO 3.7 (<4.4 (CALC))
--- NOTE | 2018-09-24 06:00 | NUR ---
no resp diff this shift. bipap cont.
--- NOTE | 2018-09-24 07:35 | NUR ---
awake in bed; no apparent distress noted; assessment completed at this time; pt alert and oriented; offers no complaints; denies pain; resp slightly labored; lungs with wheezing throughout; skin color wnl; bipap removed and o2 hi-flow per nc placed; nurse research cough noted at this time; hr reg; strong pulses; edema noted to ankles and arms; st pac/pvc on monitor; abd soft with bs present; pt assisted to bsc for bm; no stool noted at this time; koenig to gravity draining clear yellow urine; cath rose device intact; #22 to lh saline locked; no redness or edema noted at site; plan of care/ am meds explained; call light within reach; will continue to monitor
--- NOTE | 2018-09-24 08:11 | NUR ---
awake in chair eating breakfast; st on monitor; o2 per nc; koenig to gravity; iv intact; call light within reach; will continue to monitor
--- NOTE | 2018-09-24 10:00 | NUR ---
awake in bed; no apparent distress noted; resp slightly labored; o2 per nc; koenig to gravity; sr pac/pvc on monitor; occasional runs of atrial flutter/ fib noted-nonsustained; MD aware; pt deny needs; call light within reach; will continue to monitor
--- NOTE | 2018-09-24 10:03 | NUR ---
Dr Hayes present at bedside to assess pt and discuss plan of care
--- NOTE | 2018-09-24 12:07 | NUR ---
awake in bed; offers no complaints; iv intact; koenig to gravity; o2 per nc; sr pac/pvc on monitor; call light within reach; will continue to monitor
--- NOTE | 2018-09-24 13:43 | NUR ---
pt awake in bed; continues to remove ox frequently/reapplied frequent; pt noted with confusion; pt states "this monitor is telling me when I can and can not see my grandkids"; when designer/writer inquires more about situation pt points to cardiac monitor technician in room; pt also states "this charades is over now"; designer/writer inquires more about situation and pt states "[place] thinks I'm a spy for [place], [place] thinks I'm a spy for [place] and [place] think I'm a spy for [place] and [place]; pt alert and oriented; MD to be notified of change in mental status; will continue to monitor
--- NOTE | 2018-09-24 14:00 | NUR ---
awake sitting on side of bed; offers no complaints; iv intact and patent; sr pac/pvc on monitor; koenig to gravity; Dr Hayes informed per this engineering writer of pt confusion; orders to be placed for abg and results called
--- NOTE | 2018-09-24 14:25 | NUR ---
ABGs reviewed with MD; pt to be placed back on bipap
--- NOTE | 2018-09-24 14:43 | NUR ---
bipap reapplied as per MD request; settings 16/8, 35%; o2 sat current 98%
--- NOTE | 2018-09-24 16:10 | NUR ---
resting in bed with eyes closed; resp even and unlabored; no apparent distress noted; iv intact; sr pac/pvc on monitor; koenig to gravity; call light within reach; will continue to monitor
--- NOTE | 2018-09-24 17:40 | NUR ---
pt placed on hi-flow NC at 6L for dinner; bipap placed on standby
--- NOTE | 2018-09-24 17:53 | NUR ---
awake in bed eating dinner; resp slightly labored; o2 per nc; iv intact and patent with abt infusing without complication; no redness or edema noted at site; koenig to gravity; sr pac/pvc on monitor; bed in lowest position; call light within reach
--- NOTE | 2018-09-24 19:20 | NUR ---
BEDSIDE REPORT RECEIVED FROM RAFFY HERNANDEZ. PT SITTING UP IN BED DRINKING HER TEA; ALERT AND ORIENTED. C/O MILD "TAIL BONE" PAIN THAT IS CHRONIC. RESPIRATIONS EVEN AND UNLABORED ON 6L OF HIGH FLOW OXYGEN. PT AWARE THAT BIPAP WILL BE REAPPLIED AT HS. LUNGS ARE COURSE WITH INSPIRATORY WHEEZE. PLAN OF CARE REVIEWED. PT ENCOURAGED TO VERBALIZE CONCERNS. STATES UNDERSTANDING. SAFETY MEASURES IN PLACE. CALL LIGHT WITHIN REACH.
--- NOTE | 2018-09-24 21:38 | NUR ---
TRAMDAOL AND RESTORIL GIVEN WITH HS MEDICATIONS. BIPAP ON; RT AT BEDSIDE. PT SPOKE WITH DAUGHTER PRETTY ON PHONE AND GAVE HER AN UPDATE. PT IS HAPPY ABOUT POSSIBLY GOING HOME TOMORROW.
--- NOTE | 2018-09-24 23:30 | NUR ---
PT ASLEEP AT THIS TIME WITH NO SIGNS OF DISTRESS. ABEL DRAINING CLEAR YELLOW URINE IN ADEQUATE AMOUNTS. IV SITE APPEARS HEALTHY AND FLUSHES. SINUS RHYTHM ON TELE.
[2018-09-25] VITALS (10 sets, daily range): BP systolic 114–181; BP diastolic 56–84
--- NOTE | 2018-09-25 01:59 | NUR ---
PT IS PUTTING THE HOB DOWN TO SUPINE POSITION; HOB ELEVATED AND ENCOURAGED TO REMAIN IN SEMI FOWLERS DUE TO RESPIRATORY STATUS. RT FOUND HOB AT SUPINE AGAIN. BIPAP VOLUME ADJUSTED BY RT; FIO2 REMAINS AT 35%. PT EDUCATED ON POSITIONING.
--- NOTE | 2018-09-25 03:58 | NUR ---
PT REQUESTS THAT BIPAP BE REMOVED; NURSE ENCOURAGED BIPAP BECAUSE OF DR ORDERS AND PT AGREED TO KEEP BIPAP ON FOR NOW. RT AT BEDSIDE FOR BREATHING TREATMENT. PT REPOSITIONING SELF IN BED, BUT PREFERS SUPINE POSITION. NO ACUTE CHANGES IN CONDITION.
--- NOTE | 2018-09-25 04:16 | NUR ---
PT DEMANDED THAT BIPAP BE REMOVED BECAUSE HER MOUTH IS DRY; NOW ON 6L OF HIGH FLOW OXYGEN VIA NC; OXYGEN SATURATION 92%. WATER AND SNACK GIVEN PER REQUEST. LAB AT BEDSIDE.
[2018-09-25 04:26] LABS: HEMATOCRIT 30.9 % (37.0-47.0); HEMOGLOBIN 9.8 g/dl (12.0-16.0); MEAN CORPUSCULAR HGB 29.2 pG CALC (26.0-32.0); MEAN CORPUSCULAR HGB CONC 31.7 g/L CALC (32.0-36.0); PLATELET COUNT 198 thou/uL (130-400); RED BLOOD COUNT 3.36 mill/uL (4.20-5.60); RED CELL DISTRI WIDTH 14.4 % (11.5-15.5)
[2018-09-25 04:41] LABS: ALBUMIN 2.9 g/dL (3.2-5.0); BILIRUBIN, TOTAL 0.4 mg/dL (0.0-1.4); CREATININE 1.3 mg/dL (0.5-1.0); MAGNESIUM 1.8 mg/dL (1.6-2.3); POTASSIUM 4.2 mmol/l (3.5-5.1); TOTAL PROTEIN 5.2 g/dL (6.3-8.2)
[2018-09-25 05:01] LABS: IMMATURE GRANULOCYTES 7.5 % (0.0-5.0); MANUAL DIFFERENTIAL YES
--- NOTE | 2018-09-25 05:08 | NUR ---
CRITICAL HIGH CO2 CALLED FROM LAB. TRENDING DOWN FROM YESTERDAYS ABG RESULTS. DR. COOPER AWARE.
--- NOTE | 2018-09-25 06:24 | NUR ---
AFEBRILE. DRESSING CHANGED TO IV SITE DUE TO MILD LEAKING.
--- NOTE | 2018-09-25 06:45 | NUR ---
REPORT RECVD FROM RAFFY ARANA AT START OF SHIFT.
--- NOTE | 2018-09-25 07:26 | NUR ---
PT SLEEPING IN BED, MOUTH OPEN/EYES CLOSED. O2 100% ON 6L [place] NC. NO S/S OF DISTRESS. PT SUPPOSED TO GO HOME WITH HOSPICE TODAY.
--- NOTE | 2018-09-25 07:50 | NUR ---
PT STILL SLEEPING. WILL HOLD BREAKFAST TRAY UNTIL PT WAKES UP.
--- NOTE | 2018-09-25 08:00 | NUR ---
PT AWAKE, SITTING UP IN BED, DRINKING.
--- NOTE | 2018-09-25 08:12 | NUR ---
PT SITTING UP IN BED, EATING BREAKFAST. PT REQUEST ANOTHER PITCHER OF SWEET TEA.
--- NOTE | 2018-09-25 08:55 | NUR ---
PT REFUSING TO TAKE HER [place] PO MEDS WITH HER SWEET TEA. SHE "NEEDS HER TEA TO TAKE HER MEDICINE OR SHE WONT DO IT." SHE "TOLD THEM OTHER GIRLS ALONG TIME AGO AND IS TIRED OF WAITING". EXPLAINED TO PT THAT WE REQUESTED HER TEA BUT THEY TOLD US IT WOULD BE A LITTLE BIT BC THEY HAD OTHER PRIORITIES AT THAT TIME. PT STATED SHE I COULD GET HER A SPRITE INSTEAD.
--- NOTE | 2018-09-25 09:30 | NUR ---
DR COOPER @BEDSIDE.
[2018-09-25] MEDS ORDERED: LEVALBUTER1.25 MG/3 NEB (09:44)
[2018-09-25] MEDS ORDERED: METO50TA52 PO (09:45)
[2018-09-25] MEDS ORDERED: DIGOXIN0.125 MG PO (09:45)
[2018-09-25] MEDS ORDERED: MEDDOSEPAK PO (09:48)
--- NOTE | 2018-09-25 09:52 | NUR ---
HOSPICE ON UNIT.
--- NOTE | 2018-09-25 09:58 | NUR ---
PT CALLING HER SON-IN-LAW FOR A RIDE HOME. HOSPICE @BEDSIDE.
[2018-09-25] MEDS ORDERED: DOXYCYCL HYC100 MG PO (10:31)
--- NOTE | 2018-09-25 10:43 | NUR ---
PT SPOKE WITH HER DAUGHTER IN LAW, SHE WILL SEND HER SON TO COME PICK PT UP. IV & CATH COLTEN REDMAN'D W/OUT INCIDENT. TIPS INTACT. PRESSURE DRESSING APPLIED TO LW. RX SENT TO [facility].
--- NOTE | 2018-09-25 10:46 | NUR ---
STUDENT HELPING PT GET DRESSED.
--- NOTE | 2018-09-25 10:55 | NUR ---
VENTOLIN HFA & FLUTICASONE GIVEN TO PT TO TAKE HOME.
--- NOTE | 2018-09-25 11:07 | NUR ---
EDUCATED PT ON DC INSTRUCTIONS, INCLUDING NEW MEDS AND STOP TAKING LIST OF MEDS. 1 RX HANDED TO PT, OTHER RX SENT TO [facility]. HOSPICE @BEDSIDE WELL EXPLAINING WHAT TO EXPECT.
--- NOTE | 2018-09-25 11:11 | NUR ---
PT OUT THE DOOR WITH AUX, BY WC W/O2, IN STABLE CONDITION. ALL BELONGINGS SENT HOME WITH PT.
== END 2018-09-25 11:11 | disposition hospice, home (50) | DRG 193 ==
LOC: ED 17:30 → ED-I 18:30 → ED 19:09 → ICU 19:10
PROVIDERS: Emergency Medicine; Internal Medicine Nephrology; ADMIT Internal Medicine; ATTEND Internal Medicine
PROC: 5A09357 Assistance with Respiratory Ventilation, Less than 24 Consecutive Hours, Continuous Positive Airway Pressure (ICD-10-PCS; principal; 2018-09-20)
PROC: 0T9B70Z Drainage of Bladder with Drainage Device, Via Natural or Artificial Opening (ICD-10-PCS; 2018-09-22)
DX: J18.9 Pneumonia, unspecified organism (principal); J96.22 Acute and chronic respiratory failure with hypercapnia; J44.1 Chronic obstructive pulmonary disease with (acute) exacerbation; E87.2 Acidosis; I13.0 Hypertensive heart and chronic kidney disease with heart failure and stage 1 through stage 4 chronic kidney disease, or unspecified chronic kidney disease; N18.4 Chronic kidney disease, stage 4 (severe); I50.22 Chronic systolic (congestive) heart failure; J44.0 Chronic obstructive pulmonary disease with (acute) lower respiratory infection; I25.10 Atherosclerotic heart disease of native coronary artery without angina pectoris; I48.0 Paroxysmal atrial fibrillation; E78.5 Hyperlipidemia, unspecified; K21.9 Gastro-esophageal reflux disease without esophagitis; G25.81 Restless legs syndrome; F41.8 Other specified anxiety disorders; R32 Unspecified urinary incontinence; F17.200 Nicotine dependence, unspecified, uncomplicated; D63.1 Anemia in chronic kidney disease; Z99.81 Dependence on supplemental oxygen; Z79.01 Long term (current) use of anticoagulants
CPT/HCPCS: J0282; J1160; J3475

== ENCOUNTER 2018-10-06 14:05 | Inpatient (IN) | payer MEDICARE, MEDICAID ==
[~2018-10-06] VITALS: Ht 157.5 cm; Wt 84.1 kg
[~2018-10-06 14:05] MED LIST changes: +DIGOXIN0.125 MG PO; +DOXYCYCL HYC100 MG PO; +LEVALBUTER1.25 MG/3 NEB; +MEDDOSEPAK PO; +METO50TA52 PO
[2018-10-06 15:04] LABS: HEMATOCRIT 25.5 % (37.0-47.0); HEMOGLOBIN 8.1 g/dl (12.0-16.0); IMMATURE GRANULOCYTES 0.6 % (0.0-5.0); MEAN CELL VOLUME 91.4 fL CALC (80.0-100.0); MEAN CORPUSCULAR HGB CONC 31.8 g/L CALC (32.0-36.0); NEUT# 14.46 thou/uL (2.00-7.15); RED BLOOD COUNT 2.79 mill/uL (4.20-5.60); RED CELL DISTRI WIDTH 15.7 % (11.5-15.5)
[2018-10-06 15:12] LABS: BILIRUBIN, TOTAL 1.7 mg/dL (0.0-1.4); POTASSIUM 4.1 mmol/l (3.5-5.1); TOTAL PROTEIN 4.5 g/dL (6.3-8.2)
[2018-10-06 15:16] LABS: ALBUMIN 2.3 g/dL (3.2-5.0); CREATININE 2.4 mg/dL (0.5-1.0)
[2018-10-06 15:19] LABS: INTERNATIONAL NORMALIZED RATIO 1.5 RATIO (0.7-1.3); PROTHROMBIN TIME 15.3 SECONDS (9.0-12.5)
[2018-10-06 17:21] LABS: URINE BILIRUBIN - DIPSTICK NEGATIVE (NEGATIVE); URINE BLOOD DIPSTICK NEGATIVE (NEGATIVE); URINE COLOR YELLOW; URINE GLUCOSE - DIPSTICK NEGATIVE (NEGATIVE); URINE KETONE NEGATIVE (NEGATIVE); URINE LEUK ESTERASE NEGATIVE (NEGATIVE); URINE NITRITE - DIPSTICK NEGATIVE (Negative); URINE PROTEIN - DIPSTICK NEGATIVE (NEG-TRACE); URINE SPECIFIC GRAVITY <=1.005; URINE UROBILINOGEN - DIPSTICK 0.2 E.U./dL (0.2)
[2018-10-06 20:15] VITALS: BP 168/72
[2018-10-06 20:30] VITALS: BP 173/74
[2018-10-06 20:45] VITALS: BP 151/69
[2018-10-06 21:00] VITALS: BP 151/67
[2018-10-06 22:00] VITALS: BP 159/71
[2018-10-06 23:00] VITALS: BP 178/76
[2018-10-07] VITALS (52 sets, daily range): BP systolic 105–207; BP diastolic 59–102
[2018-10-07 06:29] LABS: HEMATOCRIT 26.6 % (37.0-47.0); HEMOGLOBIN 8.8 g/dl (12.0-16.0); IMMATURE GRANULOCYTES 0.6 % (0.0-5.0); MEAN CELL VOLUME 88.4 fL CALC (80.0-100.0); MEAN CORPUSCULAR HGB 29.2 pG CALC (26.0-32.0); MEAN CORPUSCULAR HGB CONC 33.1 g/L CALC (32.0-36.0); NEUT# 13.65 thou/uL (2.00-7.15); RED BLOOD COUNT 3.01 mill/uL (4.20-5.60); RED CELL DISTRI WIDTH 15.7 % (11.5-15.5)
[2018-10-07 06:44] LABS: ALBUMIN 2.6 g/dL (3.2-5.0); BILIRUBIN, TOTAL 1.6 mg/dL (0.0-1.4); CREATININE 2.9 mg/dL (0.5-1.0)
[2018-10-07 07:45] LABS: INTERNATIONAL NORMALIZED RATIO 1.3 RATIO (0.7-1.3); PROTHROMBIN TIME 13.4 SECONDS (9.0-12.5)
[2018-10-07] MEDS ORDERED: BISACODYL10 M1 RE (09:11)
[2018-10-07] MEDS ORDERED: MORPHINE O10 MG/5 ML PO ×2 (09:17→09:26)
[2018-10-07] MEDS ORDERED: PROCHLORPERAZINE5 MG PO (09:18)
[2018-10-07] MEDS ORDERED: LORAZEPAM0.5 MG PO (09:19)
[2018-10-07] MEDS ORDERED: ACEPHEN650 MG RE (09:20)
[2018-10-07] MEDS ORDERED: HYOSCYAMINE0.125 MG SL (09:22)
[2018-10-07] MEDS ORDERED: HALOPERIDOL2 MG/ML PO (09:23)
[2018-10-07] MEDS ORDERED: ATIVAN ORAL2 MG/1 ML PO (09:27)
[2018-10-07] MEDS ORDERED: SENNA S1 TAB PO (09:28)
[2018-10-07] MEDS ORDERED: DULCOLAX10 MG RE (09:29)
[2018-10-07] MEDS ORDERED: DIGOXIN0.125 MG PO (09:31)
[2018-10-07] MEDS ORDERED: METOPROLOL SUCC50 MG PO (09:35)
[2018-10-07] MEDS ORDERED: ELIQUIS2.5 MG PO (09:36)
[2018-10-07] MEDS ORDERED: NEXIUM40 M1 PO (09:36)
[2018-10-07] MEDS ORDERED: TRAMADOL HCL50 MG PO (09:37)
[2018-10-07] MEDS ORDERED: LISINOPRIL10 MG PO (09:38)
[2018-10-07] MEDS ORDERED: LIPITOR10 M1 PO (09:38)
[2018-10-07] MEDS ORDERED: SERTRALINE25 MG PO (09:41)
[2018-10-07] MEDS ORDERED: DUONEB IN (09:41)
[2018-10-07] MEDS ORDERED: TEMAZEPAM15 MG PO (09:41)
[2018-10-07] MEDS ORDERED: FLONASE AL50 MCG/ACT (09:44)
[2018-10-07] MEDS ORDERED: ROPINIROLE0.5 MG PO (09:45)
[2018-10-07] MEDS ORDERED: ASPIRIN EC LOW81 MG PO (09:45)
[2018-10-07] MEDS ORDERED: OXYBUTYNIN CHLO10 MG PO (09:46)
[2018-10-07] MEDS ORDERED: LASIX 20 MG TAB20 MG PO (09:47)
[2018-10-07] MEDS ORDERED: PROAIR HFA108 MCG/AC PO (09:49)
[2018-10-07 20:38] LABS: CREATININE 3.1 mg/dL (0.5-1.0); POTASSIUM 4.1 mmol/l (3.5-5.1)
[2018-10-08] VITALS (64 sets, daily range): BP systolic 80–196; BP diastolic 53–101
[2018-10-08 05:09] LABS: HEMATOCRIT 26.1 % (37.0-47.0); HEMOGLOBIN 8.7 g/dl (12.0-16.0); IMMATURE GRANULOCYTES 1.9 % (0.0-5.0); MEAN CELL VOLUME 89.1 fL CALC (80.0-100.0); MEAN CORPUSCULAR HGB 29.7 pG CALC (26.0-32.0); MEAN CORPUSCULAR HGB CONC 33.3 g/L CALC (32.0-36.0); NEUT# 10.11 thou/uL (2.00-7.15); RED BLOOD COUNT 2.93 mill/uL (4.20-5.60)
[2018-10-08 05:23] LABS: ALBUMIN 2.4 g/dL (3.2-5.0); CREATININE 3.1 mg/dL (0.5-1.0); POTASSIUM 4.1 mmol/l (3.5-5.1); TOTAL PROTEIN 4.8 g/dL (6.3-8.2)
[2018-10-09] VITALS (11 sets, daily range): BP systolic 43–84; BP diastolic 30–56
== END 2018-10-09 10:35 | disposition hospice, inpatient (51) | DRG 208 ==
LOC: ED 14:05 → ED-I 18:26 → ED 18:41 → ICU 18:42
PROVIDERS: Family Medicine; ADMIT Internal Medicine; ATTEND Internal Medicine
PROC: 0BH17EZ Insertion of Endotracheal Airway into Trachea, Via Natural or Artificial Opening (ICD-10-PCS; principal; 2018-10-06)
PROC: 5A1945Z Respiratory Ventilation, 24-96 Consecutive Hours (ICD-10-PCS; 2018-10-06)
PROC: 05HY33Z Insertion of Infusion Device into Upper Vein, Percutaneous Approach (ICD-10-PCS; 2018-10-06)
PROC: 0T9B70Z Drainage of Bladder with Drainage Device, Via Natural or Artificial Opening (ICD-10-PCS; 2018-10-06)
DX: J44.1 Chronic obstructive pulmonary disease with (acute) exacerbation (principal); R57.1 Hypovolemic shock; I50.33 Acute on chronic diastolic (congestive) heart failure; J96.22 Acute and chronic respiratory failure with hypercapnia; J96.21 Acute and chronic respiratory failure with hypoxia; K72.00 Acute and subacute hepatic failure without coma; N17.9 Acute kidney failure, unspecified; I13.0 Hypertensive heart and chronic kidney disease with heart failure and stage 1 through stage 4 chronic kidney disease, or unspecified chronic kidney disease; N18.3 Chronic kidney disease, stage 3 (moderate); I71.4 Abdominal aortic aneurysm, without rupture; K75.89 Other specified inflammatory liver diseases; I48.0 Paroxysmal atrial fibrillation; D64.9 Anemia, unspecified; F17.200 Nicotine dependence, unspecified, uncomplicated; Z66 Do not resuscitate; Z51.5 Encounter for palliative care
CPT/HCPCS: J2060; S0164